=== PATIENT | female | born 1930 | race African-American/Black ===

== ENCOUNTER 2018-01-28 10:14 | Inpatient (IN) | payer MEDICARE, MEDICAID ==
[~2018-01-28] VITALS: Ht 165.1 cm; Wt 74.8 kg
[~2018-01-28 10:14] MED LIST: ACETAMINOPHEN325 M1 GT; ACIDOPHILUS LA1 EAC1 GT; ACIDOPHILUS1 EAC3 GT; ARTIFICIAL TEAR15 ML LEFT EYE; CATAPRES0.1 MG GT; CLONIDINE0.1 MG GT; COLACE100 MG/10 GT; DILANTIN GT; DILANTIN-1125 MG/5 M PO; FERROUS SULFAT325 MG GT; FOLIC ACID1 MG GT; HEPARIN SO5000 UNIT1 IJ; HEPARIN SO5000 UNIT6 SUBQ; HUMALOG100 UNIT/3 SUBQ; KEPPRA500 MG GT; LEVETIRACE500 MG/51 PO; LISPRO; MOM30 ML GT; MULTIVITAM9 MG/15 M2 GT; MULTIVITAMIN HEX5 ML GT; NORVASC10 MG GT; NORVASC10 MG ORAL; OMEPRAZOLE20 M3 GT; OYSTER SHELL C500 MG GT; PROSTAT GT; PROTONIX40 M2 GT; PROTONIX40 MG GT; TRAMADOL HCL50 MG GT; TUMS500 MG GT; TYLENOL 8 HOUR650 MG GT; TYLENOL100 MG/1 M PO; UTI-STAT L3875 MG/31 GT; VITAMIN C500 M1 GT; VITAMIN C500 MG/15 GT; ZINC PO; ZINC SULFATE220 M1 GT; ZINC50 M1 GT; ZOFRAN4 M1 GT; [UNRECOGNIZED DRUG - OTHER] GT
[2018-01-28] MEDS ORDERED: Sodium Chloride 500ML 500 ML IV ONE (10:21)
[2018-01-28] MEDS ORDERED: Pantoprazole Inj IVP ONE (10:30)
[2018-01-28 10:43] VITALS: BP 115/59
[2018-01-28 10:54] LABS: BASOPHILS % (AUTO) 0.4 % (0.0-2.0); EOSINOPHILS % (AUTO) 0.8 % (0.0-3.0); HEMATOCRIT 45.3 % (37.0-47.0); HEMOGLOBIN 13.9 G/DL (12.0-16.0); LYMPHOCYTES % (AUTO) 12.5 % (20.0-45.0); MEAN CORPUSCULAR VOLUME 77 FL (80-99); MONOCYTES % (AUTO) 6.3 % (1.0-10.0); NEUTROPHILS % (AUTO) 80.1 % (45.0-75.0); PLATELET COUNT 241 K/UL (150-450); RED BLOOD COUNT 5.91 M/UL (4.20-5.40); WHITE BLOOD COUNT 12.8 K/UL (4.8-10.8)
[2018-01-28] MEDS ORDERED: VENTOLIN HFA18 GM INH (11:03)
[2018-01-28 11:04] LABS: INR 1.1 (0.9-1.1)
[2018-01-28 11:05] LABS: ANION GAP 7 mmol/L (5-15); BLOOD UREA NITROGEN 35 mg/dL (7-18); CALCIUM 9.1 MG/DL (8.5-10.1); CARBON DIOXIDE 27 MMOL/L (21-32); CHLORIDE 97 MMOL/L (98-107); CREATININE 0.8 MG/DL (0.55-1.30); POTASSIUM 4.7 MMOL/L (3.5-5.1); SODIUM 131 MMOL/L (136-145)
[2018-01-28 11:08] LABS: ALANINE AMINOTRANSFERASE 103 U/L (12-78); ALBUMIN 2.9 G/DL (3.4-5.0); ALBUMIN/GLOBULIN RATIO 0.4 (1.0-2.7); ALKALINE PHOSPHATASE 543 U/L (46-116); ASPARTATE AMINO TRANSFERASE 49 U/L (15-37); BILIRUBIN,TOTAL 0.6 MG/DL (0.2-1.0)
[2018-01-28] MEDS ORDERED: HIBICLENS118 ML ORAL (11:09)
[2018-01-28] MEDS ORDERED: FLEET ENEMA133 ML RECTAL (11:10)
[2018-01-28] MEDS ORDERED: NAMENDA5 MG GT (11:13)
[2018-01-28] MEDS ORDERED: UTI-STAT L3875 MG/31 GT (11:15)
--- NOTE | 2018-01-28 11:31 | Diagnostic Imaging Report ---
Indication: Abdominal pain Technique: Continuous helical transaxial imaging of the abdomen and pelvis was obtained from the lung bases to the pubic symphysis. No intravenous contrast was administered. Coronal 2-D reformats were also obtained. Automatic Exposure Control was utilized. Total Dose length Product (DLP): 1042.[address] Dose Index Volume (CTDIvol): 19.75 mGy Comparison: none Findings: Mild reticular densities are demonstrated at the lung bases likely scarring. Heart is enlarged. Coronary and aortoiliac calcifications are prominent. Gastrostomy noted. The gallbladder is grossly unremarkable. There is a protuberance of the muscular fascia between the rectus muscles which are incidentally atrophic. The linea alba or fascia appears intact but is stretched out and approximates the skin. There is no free fluid or free air. There is no abscess. 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 There is an old fracture of the right femoral neck which is ununited. Bones are osteopenic. There is narrowing of intervertebral discs and accompanying endplate osteophyte formation. Hypertrophied facet joints also demonstrated.. IMPRESSION: No acute findings identified in the abdomen or pelvis. Gastrostomy Wide-based umbilical hernia. 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 Moderate atherosclerotic disease. Gastrostomy in good position. Mild basilar lung fibrosis. Spondylosis. The CT scanner at [facility] is accredited by the [employer] and the scans are performed using dose optimization techniques as appropriate to a performed exam including Automatic Exposure control.
[2018-01-28 11:37] LABS: APPEARANCE,URINE SLIGHTLY CLOUDY; BILIRUBIN, URINE NEGATIVE (NEGATIVE); GLUCOSE, URINE (UA) NEGATIVE (NEGATIVE); KETONES,URINE NEGATIVE (NEGATIVE); LEUKOCYTE ESTERASE ,URINE 3+ (NEGATIVE); NITRITE,URINE POSITIVE (NEGATIVE); PH,URINE 9 (4.5-8.0); PROTEIN,URINE 2+ (NEGATIVE); UROBILINOGEN,URINE NORMAL MG/DL (0.0-1.0)
[2018-01-28 11:39] LABS: COLOR,URINE YELLOW
--- NOTE | 2018-01-28 12:01 | Diagnostic Imaging Report ---
Indication: Dyspnea Comparison: None A single view chest radiograph was obtained. Findings: Mild interstitial edema with prominent vascularity and heart size noted. Tracheostomy noted. IMPRESSION: Development of mild CHF
[2018-01-28] MEDS ORDERED: cefTRIAXone 1 GM in NS 55 ML IVPB ONE (12:30)
[2018-01-28 12:34] VITALS: BP 132/70
--- NOTE | 2018-01-28 13:11 | Consultation ---
History of Present Illness General Date patient seen: Jan 28, 2018 Chief Complaint: Vomiting Present Illness HPI 87 year old female with hx of DM, HTN, CAD, CHF, COPD, CVA/TIA, dementia, Trached, with PEG, halfway resident presented to emergency department with vomiting and weakness. Patient apparently had several episodes of vomiting , no further information was available. 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 Pt is admitted to telemetry for further management. Allergies: Coded Allergies: No Known Allergies (Verified , 08/30/10) Medication History Scheduled Albuterol Sulfate (Ventolin Hfa), 1 PUFF INH EVERY 2 HOURS, (Reported) Amlodipine Besylate (Norvasc), 10 MG GT DAILY, (Reported) Ascorbic Acid* (Vitamin C*), 500 MG GT BID, (Reported) Chlorhexidine Gluconate* (Hibiclens*), 30 ML ORAL BID, (Reported) Cran/Vitc/Mannose/Inulin/Brom (Uti-Stat Liquid), 3,875 MG GT BID, (Reported) Dextran 70/Hypromellose (Artificial Tears Eye Drops*), 1 DROP LEFT EYE TID, ( Reported) Ferrous Sulfate* (Ferrous Sulfate*), 330 MG GT DAILY, (Reported) Folic Acid* (Folic Acid*), 1 MG GT DAILY, (Reported) Heparin Sodium,Porcine/Pf (Heparin Sod 5,000 Unit/ 0.5 Ml), 5,000 UNIT SUBQ EVERY 12 HOURS, (Reported) Insulin Lispro (Humalog), 0 SUBQ .SLIDING SCALE, (Reported) Lactobacillus Acidophilus (Acidophilus Lactobacillus), 1 EACH GT BID, (Reported) Levetiracetam (Keppra), 500 MG GT Q12H, (Reported) Memantine Hcl* (Namenda*), 5 MG GT TWICE A DAY, (Reported) Multivitamins Liq* (Multivitamin Liq*), 30 ML GT DAILY, (Reported) Omeprazole (Omeprazole), 20 MG GT DAILY, (Reported) Pantoprazole Sodium (Protonix), 40 MG GT DAILY, (Reported) Phenytoin (Dilantin Susp), 200 MG GT EVERY 12 HOURS, (Reported) Phenytoin (Dilantin-125), 150 MG PO BEDTIME, (Reported) Scheduled PRN Acetaminophen* (Acetaminophen 325MG Tablet*), 650 MG GT Q4H PRN, (Reported) Clonidine Hcl* (Catapres*), 0.1 MG GT Q6HR PRN, (Reported) Docusate Sodium (Docusate Sodium), 100 MG GT DAILY PRN for Constipation, ( Reported) Magnesium Hydroxide (Milk of Magnesia), 30 ML GT DAILY PRN, (Reported) Na Phos,M-B/Na Phos,Di-Ba* (Fleet Enema*), 133 ML RECTAL DAILY PRN for Constipation, (Reported) Ondansetron (Zofran), 4 MG GT Q6H PRN for Nausea & Vomiting, (Reported) Patient History Healthcare decision maker Resuscitation status Advanced Directive on File Past Medical/Surgical History Past Medical/Surgical History: (1) Feeding by G-tube (2) HTN (hypertension) (3) GERD (gastroesophageal reflux disease) (4) Tracheostomy dependent (5) Chronic respiratory failure Review of Systems All Other Systems: negative except mentioned in HPI Physical Exam General Appearance: WD/WN Lines, tubes and drains: peripheral HEENT: normocephalic, atraumatic Neck: non-tender, normal alignment Respiratory/Chest: chest wall non-tender, lungs clear Cardiovascular/Chest: normal peripheral pulses, normal rate Abdomen: normal bowel sounds, non tender Genitourinary/Rectal: normal genital exam, normal rectal exam Last 24 Hour Vital Signs Date Time Temp Pulse Resp B/P (MAP) Pulse Ox O2 Delivery O2 Flow Rate FiO2 01/28/18 12:34 98.0 72 20 132/70 100 Trach Collar 2.0 98.0 01/28/18 10:43 97.3 62 19 115/59 100 Trach Collar 2.0 97.3 01/28/18 10:14 97.4 68 20 168/99 100 Trach Collar 2.0 97.3 Laboratory Tests Test 01/28/18 10:35 01/28/18 11:17 White Blood Count 12.8 K/UL (4.8-10.8) H Red Blood Count 5.91 M/UL (4.20-5.40) H Hemoglobin 13.9 G/DL (12.0-16.0) Hematocrit 45.3 % (37.0-47.0) Mean Corpuscular Volume 77 FL (80-99) L Mean Corpuscular Hemoglobin 23.6 PG (27.0-31.0) L Mean Corpuscular Hemoglobin Concent 30.7 G/DL (32.0-36.0) L Red Cell Distribution Width 12.0 % (11.6-14.8) Platelet Count 241 K/UL (150-450) Mean Platelet Volume 8.1 FL (6.5-10.1) Neutrophils (%) (Auto) 80.1 % (45.0-75.0) H Lymphocytes (%) (Auto) 12.5 % (20.0-45.0) L Monocytes (%) (Auto) 6.3 % (1.0-10.0) Eosinophils (%) (Auto) 0.8 % (0.0-3.0) Basophils (%) (Auto) 0.4 % (0.0-2.0) Prothrombin Time 11.7 SEC (9.30-11.50) H Prothromb Time International Ratio 1.1 (0.9-1.1) Activated Partial Thromboplast Time 35 SEC (23-33) H Sodium Level 131 MMOL/L (136-145) L Potassium Level 4.7 MMOL/L (3.5-5.1) Chloride Level 97 MMOL/L (98-107) L Carbon Dioxide Level 27 MMOL/L (21-32) Anion Gap 7 mmol/L (5-15) Blood Urea Nitrogen 35 mg/dL (7-18) H Creatinine 0.8 MG/DL (0.55-1.30) Estimat Glomerular Filtration Rate mL/min (>60) Glucose Level 88 MG/DL (74-106) Calcium Level 9.1 MG/DL (8.5-10.1) Total Bilirubin 0.6 MG/DL (0.2-1.0) Aspartate Amino Transf (AST/SGOT) 49 U/L (15-37) H Alanine Aminotransferase (ALT/SGPT) 103 U/L (12-78) H Alkaline Phosphatase 543 U/L (46-116) H Troponin I 0.000 ng/mL (0.000-0.056) Total Protein 9.5 G/DL (6.4-8.2) H Albumin 2.9 G/DL (3.4-5.0) L Globulin 6.6 g/dL Albumin/Globulin Ratio 0.4 (1.0-2.7) L Lipase 165 U/L (73-393) Urine Color Yellow Urine Appearance Slightly cloudy Urine pH 9 (4.5-8.0) Urine Specific [place] 1.015 (1.005-1.035) Urine Protein 2+ (NEGATIVE) H Urine Glucose (UA) Negative (NEGATIVE) Urine Ketones Negative (NEGATIVE) Urine Blood 3+ (NEGATIVE) H Urine Nitrite Positive (NEGATIVE) H Urine Bilirubin Negative (NEGATIVE) Urine Urobilinogen Normal MG/DL (0.0-1.0) Urine Leukocyte Esterase 3+ (NEGATIVE) H Urine RBC 2-4 /HPF (0 - 2) H Urine WBC 10-15 /HPF (0 - 2) H Urine Squamous Epithelial Cells Few /LPF (NONE/OCC) Urine Bacteria Many /HPF (NONE) H Height (Feet): 5 Height (Inches): 5.00 Weight (Pounds): 165 Medications Current Medications Medications (Trade) Dose Ordered Sig/Junior Route PRN Reason Start Time Stop Time Status Last Admin Dose Admin Acetaminophen (Tylenol) 650 mg Q4H PRN ORAL fever 01/28/18 13:15 02/27/18 13:14 UNV Albuterol/ Ipratropium (Albuterol/ Ipratropium) 3 ml EVERY 4 HOURS PRN HHN Shortness of Breath 01/28/18 13:15 02/02/18 13:14 UNV Amlodipine Besylate (Norvasc) 10 mg DAILY GT 01/29/18 09:00 02/28/18 08:59 UNV Cefepime HCl 2 gm/ Dextrose 110 ml @ 220 mls/hr EVERY 12 HOURS IV 01/28/18 21:00 02/04/18 20:59 UNV Heparin Sodium (Porcine) (Heparin 5000 units/ml) 5,000 units EVERY 12 HOURS SUBQ 01/28/18 21:00 02/27/18 20:59 UNV Levetiracetam (Keppra) 500 mg Q12H GT 01/28/18 13:15 02/27/18 13:14 UNV Morphine Sulfate (Morphine Sulfate) 2 mg EVERY 4 HOURS PRN IVP Moderate Pain (Pain Scale 4-6) 01/28/18 13:15 02/04/18 13:14 UNV Ondansetron HCl (Zofran) 4 mg Q6H PRN IVP Nausea & Vomiting 01/28/18 13:15 02/27/18 13:14 UNV Phenazopyridine HCl (Pyridium) 100 mg DAILY PRN ORAL dysuria 01/28/18 13:15 02/27/18 13:14 UNV Phenytoin (Dilantin) 200 mg EVERY 12 HOURS GT 01/28/18 21:00 02/27/18 20:59 UNV Polyethylene Glycol (Miralax) 17 gm DAILYPRN PRN ORAL Constipation 01/28/18 13:15 02/27/18 13:14 UNV Temazepam (Restoril) 15 mg HSPRN PRN ORAL Insomnia 01/28/18 13:15 02/04/18 13:14 UNV Vancomycin HCl 1 gm/Dextrose 275 ml @ 183.3 mls/ hr Q24H IV 01/29/18 00:30 02/03/18 00:29 UNV Assessment/Plan Problem List: (1) Chronic respiratory failure ICD Codes: J96.10 - Chronic respiratory failure SNOMED: 82201978 (2) Vomiting ICD Codes: R11.10 - Vomiting, unspecified SNOMED: 803109949 (3) UGI bleed ICD Codes: K92.2 - Gastrointestinal hemorrhage, unspecified SNOMED: 94383090 (4) UTI (lower urinary tract infection) ICD Codes: N39.0 - UTI (lower urinary tract infection) SNOMED: 9025973 (5) Feeding by G-tube ICD Codes: Z93.1 - Gastrostomy status SNOMED: 072831585, 616794613 (6) HTN (hypertension) ICD Codes: I10 - Essential (primary) hypertension SNOMED: 54019007 Assessment/Plan respiratory treatment check electrolytes GI evaluation H2 blockers NPO iv fluids check electrolytes Reyna Lilly MD Jan 28, 2018 13:11
[2018-01-28] MEDS ORDERED: Albuterol/Ipratropium 3ml neb HHN PRN (13:15)
[2018-01-28] MEDS ORDERED: Morphine Sulfate 2mg/ml Inj IVP PRN (13:15)
[2018-01-28] MEDS ORDERED: Miralax 17gm pkt ORAL PRN (13:15)
--- NOTE | 2018-01-28 14:12 | Emergency Room Report ---
History of Present Illness General Chief Complaint: Vomiting Source: Medical Record Present Illness HPI Patient presents emergency department today with vomiting and weakness. Patient at baseline is bedridden and not communicative and has a G-tube. Patient also is tracheostomy that is connected to oxygen. Patient apparently had several episodes of vomiting today no further information was available. All the information was obtained from patient's records as well as from the management liaison transfer records and discussion with paramedics. Symptoms is noted to be severe.No other modifying factors. No other associated signs and symptoms. No other complaints were noted. Allergies: Coded Allergies: No Known Allergies (Verified , 08/30/10) Patient History Past Medical History: DM, HTN, CAD, CHF, COPD, CVA/TIA, dementia Past Surgical History: other - G-tube, tracheostomy Social History Narrative stays at a snf Now: No Reviewed Nursing Documentation: PMH: Agreed; PSxH: Agreed Nursing Documentation-PMH Hx Cardiac Problems: Yes - CHF Hx Hypertension: Yes Hx Asthma: No - resp failure Hx COPD: Yes - trach-vent Hx Diabetes: Yes Hx Cancer: No Hx Gastrointestinal Problems: Yes - enteral feeding dependent Hx Dialysis: No Hx Neurological Problems: Yes Hx Cerebrovascular Accident: Yes Hx Transient Ischemic Attacks: Yes Hx Dementia: Yes Hx Seizures: Yes Hx Speech Problem: Yes Hx Neurologic Surgery: No Hx Brain Shunt: No Review of Systems All Other Systems: limited - Due to poor mental status Physical Exam Vital Signs Date Time Temp Pulse Resp B/P (MAP) Pulse Ox O2 Delivery O2 Flow Rate FiO2 01/28/18 10:14 97.4 68 20 168/99 100 Trach Collar 2.0 97.3 Sp02 EP Interpretation: reviewed, normal General Appearance: other - Obese, bedridden, not communicative, Chronically Ill Head: atraumatic Eyes: bilateral eye normal inspection ENT: moist mucus membranes Neck: full range of motion, other - Tracheostomy in place Respiratory: decreased breath sounds, crackles - At the bases Cardiovascular #1: regular rate, rhythm, no edema, normal capillary refill Gastrointestinal: non tender, soft, other - G-tube in place Genitourinary: deferred Musculoskeletal: other - No obvious deformity, lower extremity contractures Neurologic: other - Unable to fully assess due to poor mental status Psychiatric: depressed affect Skin: normal color, no rash Medical Decision Making Diagnostic Impression: Primary Impression: Vomiting Additional Impressions: Leukocytosis UTI (lower urinary tract infection) Tracheostomy dependent ER Course Patient presents emergency department today with episodes of vomiting. Differential considerations include bowel obstruction, electrolyte abnormality, dehydration, UTI just to name a few.Given the severity of the patient's presentation I felt this is a highly complex patient. This patient required extensive workup. Patient's laboratory workup shows leukocytosis with evidence UTI. Given this presentation I felt the patient likely had a UTI. Patient was started on Rocephin. Patient chest x-ray also shows evidence of CHF. We'll admit this patient further treatment. Case discussed with Dr. Jean Claude Sorto for admission. Labs Test 01/28/18 10:35 01/28/18 11:17 White Blood Count 12.8 K/UL (4.8-10.8) Red Blood Count 5.91 M/UL (4.20-5.40) Hemoglobin 13.9 G/DL (12.0-16.0) Hematocrit 45.3 % (37.0-47.0) Mean Corpuscular Volume 77 FL (80-99) Mean Corpuscular Hemoglobin 23.6 PG (27.0-31.0) Mean Corpuscular Hemoglobin Concent 30.7 G/DL (32.0-36.0) Red Cell Distribution Width 12.0 % (11.6-14.8) Platelet Count 241 K/UL (150-450) Mean Platelet Volume 8.1 FL (6.5-10.1) Neutrophils (%) (Auto) 80.1 % (45.0-75.0) Lymphocytes (%) (Auto) 12.5 % (20.0-45.0) Monocytes (%) (Auto) 6.3 % (1.0-10.0) Eosinophils (%) (Auto) 0.8 % (0.0-3.0) Basophils (%) (Auto) 0.4 % (0.0-2.0) Prothrombin Time 11.7 SEC (9.30-11.50) Prothromb Time International Ratio 1.1 (0.9-1.1) Activated Partial Thromboplast Time 35 SEC (23-33) Sodium Level 131 MMOL/L (136-145) Potassium Level 4.7 MMOL/L (3.5-5.1) Chloride Level 97 MMOL/L (98-107) Carbon Dioxide Level 27 MMOL/L (21-32) Anion Gap 7 mmol/L (5-15) Blood Urea Nitrogen 35 mg/dL (7-18) Creatinine 0.8 MG/DL (0.55-1.30) Estimat Glomerular Filtration Rate mL/min (>60) Glucose Level 88 MG/DL (74-106) Calcium Level 9.1 MG/DL (8.5-10.1) Total Bilirubin 0.6 MG/DL (0.2-1.0) Aspartate Amino Transf (AST/SGOT) 49 U/L (15-37) Alanine Aminotransferase (ALT/SGPT) 103 U/L (12-78) Alkaline Phosphatase 543 U/L (46-116) Troponin I 0.000 ng/mL (0.000-0.056) Total Protein 9.5 G/DL (6.4-8.2) Albumin 2.9 G/DL (3.4-5.0) Globulin 6.6 g/dL Albumin/Globulin Ratio 0.4 (1.0-2.7) Lipase 165 U/L (73-393) Urine Color Yellow Urine Appearance Slightly cloudy Urine pH 9 (4.5-8.0) Urine Specific [place] 1.015 (1.005-1.035) Urine Protein 2+ (NEGATIVE) Urine Glucose (UA) Negative (NEGATIVE) Urine Ketones Negative (NEGATIVE) Urine Blood 3+ (NEGATIVE) Urine Nitrite Positive (NEGATIVE) Urine Bilirubin Negative (NEGATIVE) Urine Urobilinogen Normal MG/DL (0.0-1.0) Urine Leukocyte Esterase 3+ (NEGATIVE) Urine RBC 2-4 /HPF (0 - 2) Urine WBC 10-15 /HPF (0 - 2) Urine Squamous Epithelial Cells Few /LPF (NONE/OCC) Urine Bacteria Many /HPF (NONE) EKG Diagnostic Results Rate: normal Rhythm: NSR ST Segments: no acute changes Rhythm Strip Diag. Results EP Interpretation: yes Rate: 80s Rhythm: NSR, no PVC's, no ectopy Chest X-Ray Diagnostic Results Chest X-Ray Diagnostic Results : Chest X-Ray Ordered: Yes # of Views/Limited/Complete: 1 View Indication: Shortness of Breath EP Interpretation: No Impression: Other - CHF Last Vital Signs Date Time Temp Pulse Resp B/P (MAP) Pulse Ox O2 Delivery O2 Flow Rate FiO2 01/28/18 12:34 98.0 72 20 132/70 100 Trach Collar 2.0 98.0 Status: improved Disposition: ADMITTED INPATIENT Condition: Serious Referrals: Jean Claude Sorto DO (PCP) Jose Cuenca MD Jan 28, 2018 14:12
[2018-01-28] MEDS: Cefepime HCl 2 GM in D5W 110 ML IV SCH (15:13)
--- NOTE | 2018-01-28 15:47 | GI Initial Consult Note ---
History of Present Illness General Date patient seen: Jan 28, 2018 Time patient seen: 15:38 Reason for Hospitalization: Vomiting Referring physician: GELY AMADOR Reason for Consultation: VOMITING Present Illness HPI Patient presents emergency department today with vomiting and weakness. Patient at baseline is bedridden and not communicative and has a G-tube. Patient also is tracheostomy that is connected to oxygen. Patient apparently had several episodes of vomiting today no further information was available. 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 Symptoms is noted to be severe.No other modifying factors. No other associated signs and symptoms. No other complaints were noted. GI consulted for reports of vomiting. ROS limited, patient seen NAD with no active s/sx of N/V/D. Patient is tracheostomy and G Tube dependent. GT site assessed, c/d/i with no signs of erythema or drainage. Labs reviewed show abnormal LFTs and mild leukocytosis. No anemia noted. Home Meds Reported Medications Cran/Vitc/Mannose/Inulin/Brom (UTI-STAT LIQUID) 3,875 Mg/30 Ml Liquid, 3875 MG GT BID, ML 01/28/18 Memantine Hcl* (NAMENDA*) 5 Mg Tablet, 5 MG GT TWICE A DAY, TAB 01/28/18 Na Phos,M-B/Na Phos,Di-Ba* (FLEET ENEMA*) 133 Ml Enema, 133 ML RECTAL DAILY PRN for Constipation, ML 0 Refills 01/28/18 Chlorhexidine Gluconate* (HIBICLENS*) 118 Ml Liquid, 30 ML ORAL BID, ML 01/28/18 Albuterol Sulfate (VENTOLIN HFA) 18 Gm Hfa.aer.ad, 1 PUFF INH EVERY 2 HOURS, # 18 GM 0 Refills 01/28/18 Ondansetron (Zofran) 4 Mg Tablet, 4 MG GT Q6H PRN for Nausea & Vomiting, TAB 07/15/17 Omeprazole (OMEPRAZOLE) 20 Mg Tablet.dr, 20 MG GT DAILY, TAB 07/15/17 Phenytoin (DILANTIN-125) 125 Mg/5 Ml Oral.susp, 150 MG PO BEDTIME, ML 07/15/17 Dextran 70/Hypromellose (ARTIFICIAL TEARS EYE DROPS*) 15 Ml Drops, 1 DROP LEFT EYE TID, #15 ML 0 Refills 07/15/17 Ferrous Sulfate* (FERROUS SULFATE*) 325 Mg Tablet, 330 MG GT DAILY, #10 TAB 07/27/12 Ascorbic Acid* (VITAMIN C*) 500 Mg Tablet, 500 MG GT BID, TAB 07/27/12 Insulin Lispro (HUMALOG) 100 Unit/1 Ml Insuln.pen, 0 SUBQ .SLIDING SCALE Inject subcutaneously per sliding scale orders 07/27/12 Magnesium Hydroxide (Milk of Magnesia) 30 Ml Susp, 30 ML GT DAILY PRN 07/27/12 Acetaminophen* (ACETAMINOPHEN 325MG TABLET*) 325 Mg Tablet, 650 MG GT Q4H PRN 07/27/12 Clonidine Hcl* (CATAPRES*) 0.1 Mg Tablet, 0.1 MG GT Q6HR PRN 07/27/12 Pantoprazole Sodium (Protonix) 40 Mg Suspdr.pkt, 40 MG GT DAILY 07/27/12 Levetiracetam (Keppra) 500 Mg Tab, 500 MG GT Q12H, #20 TAB 07/27/12 Lactobacillus Acidophilus (ACIDOPHILUS LACTOBACILLUS) 1 Each Capsule, 1 EACH GT BID 07/27/12 Heparin Sodium,Porcine/Pf (HEPARIN SOD 5,000 UNIT/ 0.5 ML) 5,000 Unit/0.5 Ml Vial, 5000 UNIT SUBQ EVERY 12 HOURS 07/27/12 Folic Acid* (FOLIC ACID*) 1 Mg Tablet, 1 MG GT DAILY, #10 TAB Take 1 tablet by mouth every day. 07/27/12 Docusate Sodium (Docusate Sodium) 100 Mg/10 Ml Udc, 100 MG GT DAILY PRN for Constipation 07/27/12 Phenytoin (DILANTIN SUSP) 100 Mg/4 Ml Udc, 200 MG GT EVERY 12 HOURS, #21 MG 07/27/12 Amlodipine Besylate (Norvasc) 10 Mg Tab, 10 MG GT DAILY, #10 TAB 07/27/12 Multivitamins Liq* (MULTIVITAMIN LIQ*) 5 Ml Udc, 30 ML GT DAILY 03/03/12 Med list reviewed/reconciled: Yes Allergies: Coded Allergies: No Known Allergies (Verified , 08/30/10) Patient History Limited by: medical condition History Provided By: Medical Record [facility] Narrative Past Medical History: DM, HTN, CAD, CHF, COPD, CVA/TIA, dementia Past Surgical History: other - G-tube, tracheostomy Social History Narrative stays at a long term Now: No Reviewed Nursing Documentation: PMH: Agreed; PSxH: Agreed Nursing Documentation-PMH Hx Cardiac Problems: Yes - CHF Hx Hypertension: Yes Hx Asthma: No - resp failure Hx COPD: Yes - trach-vent Hx Diabetes: Yes Hx Cancer: No Hx Gastrointestinal Problems: Yes - enteral feeding dependent Hx Dialysis: No Hx Neurological Problems: Yes Hx Cerebrovascular Accident: Yes Hx Transient Ischemic Attacks: Yes Hx Dementia: Yes Hx Seizures: Yes Hx Speech Problem: Yes Hx Neurologic Surgery: No Hx Brain Shunt: No Review of Systems All Other Systems: limited Physical Exam Vital Signs Date Time Temp Pulse Resp B/P (MAP) Pulse Ox O2 Delivery O2 Flow Rate FiO2 01/28/18 10:14 97.4 68 20 168/99 100 Trach Collar 2.0 97.3 Sp02 EP Interpretation: reviewed Labs Laboratory Tests Test 01/28/18 10:35 01/28/18 11:17 White Blood Count 12.8 K/UL (4.8-10.8) H Red Blood Count 5.91 M/UL (4.20-5.40) H Hemoglobin 13.9 G/DL (12.0-16.0) Hematocrit 45.3 % (37.0-47.0) Mean Corpuscular Volume 77 FL (80-99) L Mean Corpuscular Hemoglobin 23.6 PG (27.0-31.0) L Mean Corpuscular Hemoglobin Concent 30.7 G/DL (32.0-36.0) L Red Cell Distribution Width 12.0 % (11.6-14.8) Platelet Count 241 K/UL (150-450) Mean Platelet Volume 8.1 FL (6.5-10.1) Neutrophils (%) (Auto) 80.1 % (45.0-75.0) H Lymphocytes (%) (Auto) 12.5 % (20.0-45.0) L Monocytes (%) (Auto) 6.3 % (1.0-10.0) Eosinophils (%) (Auto) 0.8 % (0.0-3.0) Basophils (%) (Auto) 0.4 % (0.0-2.0) Prothrombin Time 11.7 SEC (9.30-11.50) H Prothromb Time International Ratio 1.1 (0.9-1.1) Activated Partial Thromboplast Time 35 SEC (23-33) H Sodium Level 131 MMOL/L (136-145) L Potassium Level 4.7 MMOL/L (3.5-5.1) Chloride Level 97 MMOL/L (98-107) L Carbon Dioxide Level 27 MMOL/L (21-32) Anion Gap 7 mmol/L (5-15) Blood Urea Nitrogen 35 mg/dL (7-18) H Creatinine 0.8 MG/DL (0.55-1.30) Estimat Glomerular Filtration Rate mL/min (>60) Glucose Level 88 MG/DL (74-106) Calcium Level 9.1 MG/DL (8.5-10.1) Total Bilirubin 0.6 MG/DL (0.2-1.0) Aspartate Amino Transf (AST/SGOT) 49 U/L (15-37) H Alanine Aminotransferase (ALT/SGPT) 103 U/L (12-78) H Alkaline Phosphatase 543 U/L (46-116) H Troponin I 0.000 ng/mL (0.000-0.056) Total Protein 9.5 G/DL (6.4-8.2) H Albumin 2.9 G/DL (3.4-5.0) L Globulin 6.6 g/dL Albumin/Globulin Ratio 0.4 (1.0-2.7) L Lipase 165 U/L (73-393) Urine Color Yellow Urine Appearance Slightly cloudy Urine pH 9 (4.5-8.0) Urine Specific [place] 1.015 (1.005-1.035) Urine Protein 2+ (NEGATIVE) H Urine Glucose (UA) Negative (NEGATIVE) Urine Ketones Negative (NEGATIVE) Urine Blood 3+ (NEGATIVE) H Urine Nitrite Positive (NEGATIVE) H Urine Bilirubin Negative (NEGATIVE) Urine Urobilinogen Normal MG/DL (0.0-1.0) Urine Leukocyte Esterase 3+ (NEGATIVE) H Urine RBC 2-4 /HPF (0 - 2) H Urine WBC 10-15 /HPF (0 - 2) H Urine Squamous Epithelial Cells Few /LPF (NONE/OCC) Urine Bacteria Many /HPF (NONE) H General Appearance: no apparent distress Head: normocephalic EENT: normal ENT inspection Neck: supple Respiratory: other - tracheostomy dependent Gastrointestinal: gt - c/d/i Current Medications Current Medications Medications (Trade) Dose Ordered Sig/Junior Route PRN Reason Start Time Stop Time Status Last Admin Dose Admin Acetaminophen (Tylenol) 650 mg Q4H PRN ORAL fever 01/28/18 13:15 02/27/18 13:14 Albuterol/ Ipratropium (Albuterol/ Ipratropium) 3 ml Q4H PRN HHN Shortness of Breath 01/28/18 13:15 02/02/18 13:14 Amlodipine Besylate (Norvasc) 10 mg DAILY GT 01/29/18 09:00 02/28/18 08:59 Cefepime HCl 2 gm/ Dextrose 110 ml @ 220 mls/hr Q24H IV 01/28/18 15:00 02/04/18 14:59 01/28/18 15:13 Heparin Sodium (Porcine) (Heparin 5000 units/ml) 5,000 units EVERY 12 HOURS SUBQ 01/28/18 21:00 02/27/18 20:59 Levetiracetam (Keppra) 500 mg Q12H GT 01/28/18 21:00 02/27/18 20:59 Morphine Sulfate (Morphine Sulfate) 2 mg Q4H PRN IVP Moderate Pain (Pain Scale 4-6) 01/28/18 13:15 02/04/18 13:14 Ondansetron HCl (Zofran) 4 mg Q6H PRN IVP Nausea & Vomiting 01/28/18 13:15 02/27/18 13:14 Phenazopyridine HCl (Pyridium) 100 mg DAILYPRN PRN ORAL dysuria 01/28/18 13:15 02/27/18 13:14 Phenytoin (Dilantin) 200 mg EVERY 12 HOURS GT 01/28/18 21:00 02/27/18 20:59 Polyethylene Glycol (Miralax) 17 gm DAILYPRN PRN ORAL Constipation 01/28/18 13:15 02/27/18 13:14 Temazepam (Restoril) 15 mg HSPRN PRN ORAL Insomnia 01/28/18 13:15 02/04/18 13:14 Vancomycin HCl (Vanco rx to dose) 1 ea DAILY PRN MISC PER PHARMACY 01/28/18 13:30 02/27/18 13:29 Vancomycin HCl 1 gm/Dextrose 275 ml @ 183.3 mls/ hr Q24H IVPB 01/28/18 18:00 02/02/18 17:59 GI: Plan Problems: (1) Tracheostomy dependent (2) Vomiting (3) Leukocytosis (4) HTN (hypertension) (5) GERD (gastroesophageal reflux disease) (6) Hypoalbuminemia (7) Feeding by G-tube (8) Anemia Plan LFT elevation >> patient on Dilantin supportive care low dose reglan ATC start GTFs per RD at low rate to goal ppi abx bowel regime fu labs Discussed with Dr. Pineda. Thank you for this patient referral, we will follow. The patient was seen and examined at bedside and all new and available data was reviewed in the patients chart. I agree with the above findings, impression and plan. (Patient seen earlier today. Signature stamp does not reflect patient encounter time.). - MD Ghada [facility]Ari[facility] Jan 28, 2018 15:47
[2018-01-28 16:00] VITALS: BP 132/76
[2018-01-28] MEDS ORDERED: Vancomycin 1 GM in D5W 275 ML IVPB SCH (18:00)
--- NOTE | 2018-01-28 19:12 | Cardiology Progress Note ---
Assessment/Plan Assessment/Plan The patient is seen and examined, full consult note will be dictated shortly. Objective Last 24 Hour Vital Signs Date Time Temp Pulse Resp B/P (MAP) Pulse Ox O2 Delivery O2 Flow Rate FiO2 01/28/18 16:00 64 01/28/18 16:00 30 01/28/18 14:37 Trach Collar 3.0 01/28/18 13:35 98.0 72 20 132/70 100 Trach Collar 2.0 98.0 01/28/18 12:34 98.0 72 20 132/70 100 Trach Collar 2.0 98.0 01/28/18 10:43 97.3 62 19 115/59 100 Trach Collar 2.0 97.3 01/28/18 10:14 97.4 68 20 168/99 100 Trach Collar 2.0 97.3 Laboratory Tests Test 01/28/18 10:35 01/28/18 11:17 White Blood Count 12.8 K/UL (4.8-10.8) H Red Blood Count 5.91 M/UL (4.20-5.40) H Hemoglobin 13.9 G/DL (12.0-16.0) Hematocrit 45.3 % (37.0-47.0) Mean Corpuscular Volume 77 FL (80-99) L Mean Corpuscular Hemoglobin 23.6 PG (27.0-31.0) L Mean Corpuscular Hemoglobin Concent 30.7 G/DL (32.0-36.0) L Red Cell Distribution Width 12.0 % (11.6-14.8) Platelet Count 241 K/UL (150-450) Mean Platelet Volume 8.1 FL (6.5-10.1) Neutrophils (%) (Auto) 80.1 % (45.0-75.0) H Lymphocytes (%) (Auto) 12.5 % (20.0-45.0) L Monocytes (%) (Auto) 6.3 % (1.0-10.0) Eosinophils (%) (Auto) 0.8 % (0.0-3.0) Basophils (%) (Auto) 0.4 % (0.0-2.0) Prothrombin Time 11.7 SEC (9.30-11.50) H Prothromb Time International Ratio 1.1 (0.9-1.1) Activated Partial Thromboplast Time 35 SEC (23-33) H Sodium Level 131 MMOL/L (136-145) L Potassium Level 4.7 MMOL/L (3.5-5.1) Chloride Level 97 MMOL/L (98-107) L Carbon Dioxide Level 27 MMOL/L (21-32) Anion Gap 7 mmol/L (5-15) Blood Urea Nitrogen 35 mg/dL (7-18) H Creatinine 0.8 MG/DL (0.55-1.30) Estimat Glomerular Filtration Rate mL/min (>60) Glucose Level 88 MG/DL (74-106) Calcium Level 9.1 MG/DL (8.5-10.1) Total Bilirubin 0.6 MG/DL (0.2-1.0) Aspartate Amino Transf (AST/SGOT) 49 U/L (15-37) H Alanine Aminotransferase (ALT/SGPT) 103 U/L (12-78) H Alkaline Phosphatase 543 U/L (46-116) H Troponin I 0.000 ng/mL (0.000-0.056) Total Protein 9.5 G/DL (6.4-8.2) H Albumin 2.9 G/DL (3.4-5.0) L Globulin 6.6 g/dL Albumin/Globulin Ratio 0.4 (1.0-2.7) L Lipase 165 U/L (73-393) Urine Color Yellow Urine Appearance Slightly cloudy Urine pH 9 (4.5-8.0) Urine Specific [place] 1.015 (1.005-1.035) Urine Protein 2+ (NEGATIVE) H Urine Glucose (UA) Negative (NEGATIVE) Urine Ketones Negative (NEGATIVE) Urine Blood 3+ (NEGATIVE) H Urine Nitrite Positive (NEGATIVE) H Urine Bilirubin Negative (NEGATIVE) Urine Urobilinogen Normal MG/DL (0.0-1.0) Urine Leukocyte Esterase 3+ (NEGATIVE) H Urine RBC 2-4 /HPF (0 - 2) H Urine WBC 10-15 /HPF (0 - 2) H Urine Squamous Epithelial Cells Few /LPF (NONE/OCC) Urine Bacteria Many /HPF (NONE) H Carter Reed MD Jan 28, 2018 19:12
[2018-01-28 20:00] VITALS: BP 118/75
[2018-01-28] MEDS: NovoLOG Insulin Flexpen SUBQ SCH (21:00)
[2018-01-28] MEDS: Phenytoin Susp 100mg/4ml GT SCH (22:09)
[2018-01-28] MEDS: levETIRAcetam 500mg/5ml Liquid GT SCH (22:09)
[2018-01-28] MEDS: Heparin 5000 units/ml inj SUBQ SCH (22:10)
[2018-01-29] VITALS: BP 119/74
--- NOTE | 2018-01-29 02:30 | Consultation ---
DATE OF CONSULTATION: 01/28/2018 CARDIOLOGY CONSULTATION CONSULTING PHYSICIAN: Carter Reed M.D. REQUESTING PHYSICIAN: Jean Claude Sorto D.O. REASON FOR CONSULTATION: Management of hypertension. HISTORY OF PRESENT ILLNESS: This is a very unfortunate 87-year-old female, who is bedridden and noncommunicative, is being transferred from a nursing facility for vomiting and weakness. Apparently, the patient had several episodes of vomiting today. There was no other associated complaints of fever, chills, or abdominal pain. The patient has history of ventilatory-drive respiratory failure, status post tracheostomy tube placement, as well as dysphagia, and status post PEG placement. Other chronic medical problems including diabetes mellitus, hypertension, coronary artery disease, congestive heart failure, chronic obstructive pulmonary disease, CVA/TIA, and dementia. At the time of arrival to the hospital, initial blood pressure was 168/99 mmHg and pulse was 68 beats per minute. Initial 12-lead electrocardiogram shows sinus rhythm, heart rate of 80 with no witness of ectopy or ST and T-wave abnormalities. Chest x-ray was significant for mild interstitial edema, cardiomegaly, and presence of tracheostomy tube. PAST MEDICAL HISTORY: Including diabetes mellitus, hypertension, CAD, CHF, COPD, CVA/TIA, and dementia. PAST SURGICAL HISTORY: Status post tracheostomy tube placement and status post PEG placement. MEDICATIONS: List of medications in the nursing facility includes acetaminophen 650 mg G-tube q.4 h. p.r.n. pain and temperature, albuterol inhaler 1 puff q. hours, Norvasc 10 mg G-tube daily, vitamin C 500 mg G-tube twice daily, chlorhexidine gluconate 30 mL G-tube twice daily, clonidine 1.1 mg G-tube q.6 hours p.r.n. systolic blood pressure over 160, artificial tears, UTI-Stat liquid 75 mg G-tube twice daily, Colace 100 mg G-tube daily p.r.n. constipation, ferrous sulfate 330 mg G-tube daily, folic acid 1 mg G-tube daily, heparin sulfate 5000 units subcutaneous q.12 hours, insulin lispro sliding scale, Lactobacillus acidophilus 1 capsule G-tube twice daily, Keppra 500 mg G-tube q.12 hours, milk of magnesia 30 mL G-tube daily, multivitamin 30 mL G-tube daily, Fleet Enema 133 mL rectal daily p.r.n. constipation, omeprazole 20 mg G-tube daily, Zofran 4 mg G-tube q.6 h. p.r.n. nausea and vomiting, Protonix 40 mg G-tube daily, and Dilantin 200 mg G-tube q.12 hours and 150 mg p.o. at bedtime. ALLERGIES: No known drug allergies. SOCIAL HISTORY: Resident of a nursing facility. Currently, denies any tobacco, alcohol, or illicit drug use. REVIEW OF SYSTEMS: A 12-system review cannot be assessed due to underlying dementia and nonverbal status. PHYSICAL EXAMINATION: VITAL SIGNS: Blood pressure was 168/99, pulse of 68, respirations of 20, temperature 98.4 degrees Fahrenheit, and O2 saturation 100% on room air. GENERAL: The patient is a very unfortunate 87-year-old lady, who is bedridden, and noncommunicative. HEENT: Atraumatic and normocephalic. Anicteric. Presence of a trach collar. Pupils are equal, round, and reactive to light and accommodation. NECK: JVP cannot be assessed. No carotid bruit. CARDIOVASCULAR: Normal S1, S2. Regular rate and rhythm. No murmurs, gallops, or rubs. PMI is at fourth intercostal space in the midclavicular line. LUNGS: Diminished breath sounds in both bases. ABDOMEN: Soft, nontender, and nondistended. No hepatosplenomegaly. Presence of a G-tube. Positive bowel sounds. EXTREMITIES: No evidence of edema, clubbing, or cyanosis. LABORATORY FINDINGS: WBC 12.8, hemoglobin 13.9, hematocrit of 45.3, and platelet count is 241,000. Chemistry shows sodium 131, potassium is 4.7, chloride 97, bicarbonate 27, BUN 35, creatinine 0.8, and glucose 88. Hemoglobin A1c 5.5. Calcium is 9.1. Troponin I is 0. INR is 1.1. ASSESSMENT AND PLAN: The patient is a very unfortunate 87-year-old female seen in Cardiology consultation at the request of Dr. Sorto. 1. Accelerated hypertension. I would like to continue this patient on amlodipine 10 mg daily and continue to monitor the patient's blood pressure. 2. Failure to thrive and associated hypovolemia as it is evident on the chemistry with sodium of 131 and BUN and creatinine suggestive of prerenal azotemia. Hydration and electrolyte correction is warranted. 3. Prior history of 2D echocardiography showing normal LV systolic function. I would like to thank, Dr. Sorto, for allowing me to participate in the care of this patient. Carter Reed M.D. DR: LJ JOB#: [id number] CC:
[2018-01-29 04:00] VITALS: BP 111/62
[2018-01-29] MEDS: NovoLOG Insulin Flexpen SUBQ SCH ×3 (06:30→17:02)
[2018-01-29 06:43] LABS: BASOPHILS % (AUTO) 1.5 % (0.0-2.0); EOSINOPHILS % (AUTO) 1.9 % (0.0-3.0); HEMATOCRIT 38.4 % (37.0-47.0); HEMOGLOBIN 12.1 G/DL (12.0-16.0); MEAN CORPUSCULAR VOLUME 77 FL (80-99); MONOCYTES % (AUTO) 9.4 % (1.0-10.0); NEUTROPHILS % (AUTO) 69.2 % (45.0-75.0); PLATELET COUNT 197 K/UL (150-450); RED BLOOD COUNT 4.98 M/UL (4.20-5.40); RED CELL DISTRIBUTION WIDTH 12.2 % (11.6-14.8); WHITE BLOOD COUNT 6.2 K/UL (4.8-10.8)
[2018-01-29 07:01] LABS: ALANINE AMINOTRANSFERASE 79 U/L (12-78); ALBUMIN 2.6 G/DL (3.4-5.0); ALBUMIN/GLOBULIN RATIO 0.4 (1.0-2.7); ALKALINE PHOSPHATASE 445 U/L (46-116); ANION GAP 5 mmol/L (5-15); ASPARTATE AMINO TRANSFERASE 38 U/L (15-37); BILIRUBIN,TOTAL 0.8 MG/DL (0.2-1.0); BLOOD UREA NITROGEN 31 mg/dL (7-18); CALCIUM 8.7 MG/DL (8.5-10.1); CARBON DIOXIDE 27 MMOL/L (21-32); CHLORIDE 100 MMOL/L (98-107); CREATININE 0.7 MG/DL (0.55-1.30); POTASSIUM 4.4 MMOL/L (3.5-5.1); SODIUM 132 MMOL/L (136-145)
[2018-01-29 08:00] VITALS: BP 135/75
--- NOTE | 2018-01-29 08:48 | Consultation ---
History of Present Illness General Date patient seen: Jan 29, 2018 Chief Complaint: Vomiting Referring physician: GELY AMADRO Reason for Consultation: VOMITING Present Illness HPI Ms Gallegos is a 87 yo female with PMHx of DM, HTN, CHF, COPD, CVA (S/P Peg and Trach) and dementia who presented to the ED on 01/28/18 from a [facility] with Hx of vomiting and weakness. She is non-verbal and bed ridden per notes. She was apparently observed to have vomited several time at the [facility]. She is unable to give any history. In the ED she had leukocytosis but was afebrile. She was not observed to be vomiting. She does have a G-Tube. CXR and CT abd/pel showed no infectious etiology. Her UA was mildly positive and she was started on abx. ID was consulted for leukocytosis and vomiting. PMHX/PSHx DM HTN CAD CHF COPD CVA/TIA Dementia Trach/T-tube dependent SocHx Unable to obtain 2/2 dementia and non-verbal FamHx Unable to obtain 2/2 dementia and non-verbal Allergies: Coded Allergies: No Known Allergies (Verified , 08/30/10) Medication History Scheduled Albuterol Sulfate (Ventolin Hfa), 1 PUFF INH EVERY 2 HOURS, (Reported) Amlodipine Besylate (Norvasc), 10 MG GT DAILY, (Reported) Ascorbic Acid* (Vitamin C*), 500 MG GT BID, (Reported) Chlorhexidine Gluconate* (Hibiclens*), 30 ML ORAL BID, (Reported) Cran/Vitc/Mannose/Inulin/Brom (Uti-Stat Liquid), 3,875 MG GT BID, (Reported) Dextran 70/Hypromellose (Artificial Tears Eye Drops*), 1 DROP LEFT EYE TID, ( Reported) Ferrous Sulfate* (Ferrous Sulfate*), 330 MG GT DAILY, (Reported) Folic Acid* (Folic Acid*), 1 MG GT DAILY, (Reported) Heparin Sodium,Porcine/Pf (Heparin Sod 5,000 Unit/ 0.5 Ml), 5,000 UNIT SUBQ EVERY 12 HOURS, (Reported) Insulin Lispro (Humalog), 0 SUBQ .SLIDING SCALE, (Reported) Lactobacillus Acidophilus (Acidophilus Lactobacillus), 1 EACH GT BID, (Reported) Levetiracetam (Keppra), 500 MG GT Q12H, (Reported) Memantine Hcl* (Namenda*), 5 MG GT TWICE A DAY, (Reported) Multivitamins Liq* (Multivitamin Liq*), 30 ML GT DAILY, (Reported) Omeprazole (Omeprazole), 20 MG GT DAILY, (Reported) Pantoprazole Sodium (Protonix), 40 MG GT DAILY, (Reported) Phenytoin (Dilantin Susp), 200 MG GT EVERY 12 HOURS, (Reported) Phenytoin (Dilantin-125), 150 MG PO BEDTIME, (Reported) Scheduled PRN Acetaminophen* (Acetaminophen 325MG Tablet*), 650 MG GT Q4H PRN, (Reported) Clonidine Hcl* (Catapres*), 0.1 MG GT Q6HR PRN, (Reported) Docusate Sodium (Docusate Sodium), 100 MG GT DAILY PRN for Constipation, ( Reported) Magnesium Hydroxide (Milk of Magnesia), 30 ML GT DAILY PRN, (Reported) Na Phos,M-B/Na Phos,Di-Ba* (Fleet Enema*), 133 ML RECTAL DAILY PRN for Constipation, (Reported) Ondansetron (Zofran), 4 MG GT Q6H PRN for Nausea & Vomiting, (Reported) Patient History Healthcare decision maker Susan Duncan (JUSTO) Resuscitation status Full Code Advanced Directive on File Review of Systems ROS Narrative Unable to obtain 2/2 dementia and non-verbal Physical Exam Last 24 Hour Vital Signs Date Time Temp Pulse Resp B/P (MAP) Pulse Ox O2 Delivery O2 Flow Rate FiO2 01/29/18 07:39 T-piece 8.0 35 01/29/18 07:38 98 T-piece 8.0 35 01/29/18 07:37 59 18 T-piece 8.0 35 01/29/18 04:00 66 01/29/18 04:00 97.0 64 20 111/62 (78) 98 97.0 01/29/18 04:00 3.0 28 01/29/18 01:17 T-piece 8.0 30 01/29/18 01:17 99 T-piece 8.0 30 01/29/18 00:00 61 01/29/18 00:00 97.0 60 18 119/74 (89) 96 97.0 01/28/18 21:00 T-piece 3.0 01/28/18 20:00 96.8 63 18 118/75 (89) 100 96.8 01/28/18 20:00 66 01/28/18 20:00 3.0 28 01/28/18 19:36 98 T-piece 8.0 30 01/28/18 19:36 T-piece 8.0 30 01/28/18 19:36 65 20 T-piece 8.0 30 01/28/18 16:00 64 01/28/18 16:00 97.5 86 18 132/76 (94) 100 97.5 01/28/18 16:00 30 01/28/18 14:37 Trach Collar 3.0 01/28/18 13:35 98.0 72 20 132/70 100 Trach Collar 2.0 98.0 01/28/18 12:34 98.0 72 20 132/70 100 Trach Collar 2.0 98.0 01/28/18 10:43 97.3 62 19 115/59 100 Trach Collar 2.0 97.3 01/28/18 10:14 97.4 68 20 168/99 100 Trach Collar 2.0 97.3 Intake and Output 01/28/18 01/29/18 19:00 07:00 Intake Total 50 ml 230 ml Output Total 0 ml Balance 50 ml 230 ml Intake Free Water 30 ml 90 ml Tube Feeding 20 ml 140 ml Output Urine Total 0 ml # Voids 2 Laboratory Tests Test 01/28/18 10:35 01/28/18 11:17 01/29/18 05:40 White Blood Count 12.8 K/UL (4.8-10.8) H 6.2 K/UL (4.8-10.8) # Red Blood Count 5.91 M/UL (4.20-5.40) H 4.98 M/UL (4.20-5.40) Hemoglobin 13.9 G/DL (12.0-16.0) 12.1 G/DL (12.0-16.0) Hematocrit 45.3 % (37.0-47.0) 38.4 % (37.0-47.0) Mean Corpuscular Volume 77 FL (80-99) L 77 FL (80-99) L Mean Corpuscular Hemoglobin 23.6 PG (27.0-31.0) L 24.4 PG (27.0-31.0) L Mean Corpuscular Hemoglobin Concent 30.7 G/DL (32.0-36.0) L 31.6 G/DL (32.0-36.0) L Red Cell Distribution Width 12.0 % (11.6-14.8) 12.2 % (11.6-14.8) Platelet Count 241 K/UL (150-450) 197 K/UL (150-450) Mean Platelet Volume 8.1 FL (6.5-10.1) 8.7 FL (6.5-10.1) Neutrophils (%) (Auto) 80.1 % (45.0-75.0) H 69.2 % (45.0-75.0) Lymphocytes (%) (Auto) 12.5 % (20.0-45.0) L 18.0 % (20.0-45.0) L Monocytes (%) (Auto) 6.3 % (1.0-10.0) 9.4 % (1.0-10.0) Eosinophils (%) (Auto) 0.8 % (0.0-3.0) 1.9 % (0.0-3.0) Basophils (%) (Auto) 0.4 % (0.0-2.0) 1.5 % (0.0-2.0) Prothrombin Time 11.7 SEC (9.30-11.50) H Prothromb Time International Ratio 1.1 (0.9-1.1) Activated Partial Thromboplast Time 35 SEC (23-33) H Sodium Level 131 MMOL/L (136-145) L 132 MMOL/L (136-145) L Potassium Level 4.7 MMOL/L (3.5-5.1) 4.4 MMOL/L (3.5-5.1) Chloride Level 97 MMOL/L (98-107) L 100 MMOL/L (98-107) Carbon Dioxide Level 27 MMOL/L (21-32) 27 MMOL/L (21-32) Anion Gap 7 mmol/L (5-15) 5 mmol/L (5-15) Blood Urea Nitrogen 35 mg/dL (7-18) H 31 mg/dL (7-18) H Creatinine 0.8 MG/DL (0.55-1.30) 0.7 MG/DL (0.55-1.30) Estimat Glomerular Filtration Rate mL/min (>60) mL/min (>60) Glucose Level 88 MG/DL (74-106) 91 MG/DL (74-106) Hemoglobin A1c 5.5 % (4.3-6.0) Calcium Level 9.1 MG/DL (8.5-10.1) 8.7 MG/DL (8.5-10.1) Total Bilirubin 0.6 MG/DL (0.2-1.0) 0.8 MG/DL (0.2-1.0) Aspartate Amino Transf (AST/SGOT) 49 U/L (15-37) H 38 U/L (15-37) H Alanine Aminotransferase (ALT/SGPT) 103 U/L (12-78) H 79 U/L (12-78) H Alkaline Phosphatase 543 U/L (46-116) H 445 U/L (46-116) H Troponin I 0.000 ng/mL (0.000-0.056) Total Protein 9.5 G/DL (6.4-8.2) H 8.5 G/DL (6.4-8.2) H Albumin 2.9 G/DL (3.4-5.0) L 2.6 G/DL (3.4-5.0) L Globulin 6.6 g/dL 5.9 g/dL Albumin/Globulin Ratio 0.4 (1.0-2.7) L 0.4 (1.0-2.7) L Lipase 165 U/L (73-393) Urine Color Yellow Urine Appearance Slightly cloudy Urine pH 9 (4.5-8.0) Urine Specific [place] 1.015 (1.005-1.035) Urine Protein 2+ (NEGATIVE) H Urine Glucose (UA) Negative (NEGATIVE) Urine Ketones Negative (NEGATIVE) Urine Blood 3+ (NEGATIVE) H Urine Nitrite Positive (NEGATIVE) H Urine Bilirubin Negative (NEGATIVE) Urine Urobilinogen Normal MG/DL (0.0-1.0) Urine Leukocyte Esterase 3+ (NEGATIVE) H Urine RBC 2-4 /HPF (0 - 2) H Urine WBC 10-15 /HPF (0 - 2) H Urine Squamous Epithelial Cells Few /LPF (NONE/OCC) Urine Bacteria Many /HPF (NONE) H Height (Feet): 5 Height (Inches): 5.00 Weight (Pounds): 165 Medications Current Medications Medications (Trade) Dose Ordered Sig/Junior Route PRN Reason Start Time Stop Time Status Last Admin Dose Admin Acetaminophen (Tylenol) 650 mg Q4H PRN ORAL fever 01/28/18 13:15 02/27/18 13:14 Albuterol/ Ipratropium (Albuterol/ Ipratropium) 3 ml Q4H PRN HHN Shortness of Breath 01/28/18 13:15 02/02/18 13:14 Amlodipine Besylate (Norvasc) 10 mg DAILY GT 01/29/18 09:00 02/28/18 08:59 Cefepime HCl 2 gm/ Dextrose 110 ml @ 220 mls/hr Q24H IV 01/28/18 15:00 02/04/18 14:59 01/28/18 15:13 Dextrose (Dextrose 50%) 25 ml Q30M PRN IV Hypoglycemia 01/28/18 20:45 02/27/18 20:44 Dextrose (Dextrose 50%) 50 ml Q30M PRN IV Hypoglycemia 01/28/18 20:45 02/27/18 20:44 Heparin Sodium (Porcine) (Heparin 5000 units/ml) 5,000 units EVERY 12 HOURS SUBQ 01/28/18 21:00 02/27/18 20:59 01/28/18 22:10 Insulin Aspart (NovoLOG) BEFORE MEALS AND HS SUBQ 01/28/18 21:00 02/27/18 20:59 Levetiracetam (Keppra) 500 mg Q12H GT 01/28/18 21:00 02/27/18 20:59 01/28/18 22:09 Morphine Sulfate (Morphine Sulfate) 2 mg Q4H PRN IVP Moderate Pain (Pain Scale 4-6) 01/28/18 13:15 02/04/18 13:14 Ondansetron HCl (Zofran) 4 mg Q6H PRN IVP Nausea & Vomiting 01/28/18 13:15 02/27/18 13:14 Phenazopyridine HCl (Pyridium) 100 mg DAILYPRN PRN ORAL dysuria 01/28/18 13:15 02/27/18 13:14 Phenytoin (Dilantin) 200 mg EVERY 12 HOURS GT 01/28/18 21:00 02/27/18 20:59 01/28/18 22:09 Polyethylene Glycol (Miralax) 17 gm DAILYPRN PRN ORAL Constipation 01/28/18 13:15 02/27/18 13:14 Temazepam (Restoril) 15 mg HSPRN PRN ORAL Insomnia 01/28/18 13:15 02/04/18 13:14 Vancomycin HCl (Vanco rx to dose) 1 ea DAILY PRN MISC PER PHARMACY 01/28/18 13:30 02/27/18 13:29 Vancomycin HCl 1 gm/Dextrose 275 ml @ 183.3 mls/ hr Q24H IVPB 01/28/18 18:00 02/02/18 17:59 01/28/18 18:18 Objective Narrative Gen: NAD, Laying in bed, On T-piece O2 HEENT: NCAT, MMM, EOMI, PERRL, No Oral lesion, no scleral icterus, Trached NECK: full range of motion, supple, no meningismus, No LAD, No JVD LUNGS: CTAB, No W/C, No Accessory muscle use CARDS: RRR, S1, S2, No M/R/G ABD: Soft, NT, ND, No R/G, + BS, No HSM, No Masses, G-tube (no E/P) : Deferred Ext: C/C/E, Pulses 2+ B/L (DP, Rad) NEURO: A/O x 0, Strength and Sensation Grossly intact PSYCH: mood/affect normal SKIN: warm/dry, No rashes, Sacral ulcer ( No E/P) Assessment/Plan Assessment/Plan 87 yo female with PMHx of DM, HTN, CHF, COPD, CVA (S/P Peg and Trach) and dementia who presented to the ED on 01/28/18 from a [facility] with Hx of vomiting and weakness. Leukocytosis Resolved UTI vs Gastroenteritis UTI UA positive Unable to assess symptoms UCx Pending DM HTN CAD CHF COPD CVA/TIA Dementia Trach/T-tube dependent PLAN: - Continue Cefepime #1/7 - Pending UCx - D/C Vancomcyin #1 - f/u cultures - Monitor CBC and Temps - Supportive care Thank you for this consult. We will continue to follow Ms Gallegos during this hospitalization. Aroldo Olguin MD Jan 29, 2018 08:48
[2018-01-29] MEDS: Heparin 5000 units/ml inj SUBQ SCH ×2 (09:00→22:50)
[2018-01-29] MEDS: Phenytoin Susp 100mg/4ml GT SCH ×2 (09:10→22:48)
[2018-01-29] MEDS: levETIRAcetam 500mg/5ml Liquid GT SCH ×2 (09:49→22:49)
--- NOTE | 2018-01-29 11:58 | Pulmonology Progress Note ---
Assessment/Plan Problems: (1) Chronic respiratory failure (2) Vomiting (3) UGI bleed (4) UTI (lower urinary tract infection) (5) Feeding by G-tube (6) HTN (hypertension) Assessment/Plan looks comfortable respiratory treatment trach site care check h/h prbc prn GI evaluation H2 blockers monitor BP check electrolytes Subjective ROS Limited/Unobtainable: No Constitutional: Reports: no symptoms HEENT: Repors: no symptoms Respiratory: Reports: no symptoms Allergies: Coded Allergies: No Known Allergies (Verified , 08/30/10) Objective Last 24 Hour Vital Signs Date Time Temp Pulse Resp B/P (MAP) Pulse Ox O2 Delivery O2 Flow Rate FiO2 01/29/18 09:10 59 135/75 01/29/18 09:00 T-piece 3.0 01/29/18 08:00 62 01/29/18 08:00 96.8 59 20 135/75 (95) 99 96.8 01/29/18 08:00 3.0 28 01/29/18 07:39 T-piece 8.0 35 01/29/18 07:38 98 T-piece 8.0 35 01/29/18 07:37 59 18 T-piece 8.0 35 01/29/18 04:00 66 01/29/18 04:00 97.0 64 20 111/62 (78) 98 97.0 01/29/18 04:00 3.0 28 01/29/18 01:17 T-piece 8.0 30 01/29/18 01:17 99 T-piece 8.0 30 01/29/18 00:00 61 01/29/18 00:00 97.0 60 18 119/74 (89) 96 97.0 01/28/18 21:00 T-piece 3.0 01/28/18 20:00 96.8 63 18 118/75 (89) 100 96.8 01/28/18 20:00 66 01/28/18 20:00 3.0 28 01/28/18 19:36 98 T-piece 8.0 30 01/28/18 19:36 T-piece 8.0 30 01/28/18 19:36 65 20 T-piece 8.0 30 01/28/18 16:00 64 01/28/18 16:00 97.5 86 18 132/76 (94) 100 97.5 01/28/18 16:00 30 01/28/18 14:37 Trach Collar 3.0 01/28/18 13:35 98.0 72 20 132/70 100 Trach Collar 2.0 98.0 01/28/18 12:34 98.0 72 20 132/70 100 Trach Collar 2.0 98.0 Intake and Output 01/28/18 01/29/18 19:00 07:00 Intake Total 50 ml 230 ml Output Total 0 ml Balance 50 ml 230 ml Intake Free Water 30 ml 90 ml Tube Feeding 20 ml 140 ml Output Urine Total 0 ml # Voids 2 General Appearance: WD/WN HEENT: normocephalic, status post trach Respiratory/Chest: chest wall non-tender Cardiovascular: normal peripheral pulses, normal rate, no JVD Abdomen: normal bowel sounds, soft, non tender Extremities: no cyanosis, no clubbing Neurologic/Psychiatric: inspector golf ball II-XII grossly normal Microbiology Date/Time Source Procedure Growth Status 01/28/18 11:17 Urine,Clean Catch Urine Culture - Preliminary Gram Negative Bacillus 1 Resulted 01/28/18 11:17 Rectum VRE Culture Pending Resulted 01/28/18 11:17 Rectum - Preliminary Resulted Laboratory Tests 01/29/18 05:40: White Blood Count 6.2#, Red Blood Count 4.98, Hemoglobin 12.1, Hematocrit 38.4, Mean Corpuscular Volume 77L, Mean Corpuscular Hemoglobin 24.4L, Mean Corpuscular Hemoglobin Concent 31.6L, Red Cell Distribution Width 12.2, Platelet Count 197, Mean Platelet Volume 8.7, Neutrophils (%) (Auto) 69.2, Lymphocytes (%) (Auto) 18.0L, Monocytes (%) (Auto) 9.4, Eosinophils (%) (Auto) 1.9, Basophils (%) (Auto) 1.5, Sodium Level 132L, Potassium Level 4.4, Chloride Level 100, Carbon Dioxide Level 27, Anion Gap 5, Blood Urea Nitrogen 31H, Creatinine 0.7, Estimat Glomerular Filtration Rate , Glucose Level 91, Calcium Level 8.7, Total Bilirubin 0.8, Aspartate Amino Transf (AST/SGOT) 38H, Alanine Aminotransferase (ALT/SGPT) 79H, Alkaline Phosphatase 445H, Total Protein 8.5H, Albumin 2.6L, Globulin 5.9, Albumin/Globulin Ratio 0.4L Current Medications Medications (Trade) Dose Ordered Sig/Junior Route PRN Reason Start Time Stop Time Status Last Admin Dose Admin Acetaminophen (Tylenol) 650 mg Q4H PRN ORAL fever 01/28/18 13:15 02/27/18 13:14 Albuterol/ Ipratropium (Albuterol/ Ipratropium) 3 ml Q4H PRN HHN Shortness of Breath 01/28/18 13:15 02/02/18 13:14 Amlodipine Besylate (Norvasc) 10 mg DAILY GT 01/29/18 09:00 02/28/18 08:59 01/29/18 09:10 Cefepime HCl 2 gm/ Dextrose 110 ml @ 220 mls/hr Q24H IV 01/28/18 15:00 02/04/18 14:59 01/28/18 15:13 Dextrose (Dextrose 50%) 25 ml Q30M PRN IV Hypoglycemia 01/28/18 20:45 02/27/18 20:44 Dextrose (Dextrose 50%) 50 ml Q30M PRN IV Hypoglycemia 01/28/18 20:45 02/27/18 20:44 Heparin Sodium (Porcine) (Heparin 5000 units/ml) 5,000 units EVERY 12 HOURS SUBQ 01/28/18 21:00 02/27/18 20:59 01/28/18 22:10 Insulin Aspart (NovoLOG) BEFORE MEALS AND HS SUBQ 01/28/18 21:00 02/27/18 20:59 Levetiracetam (Keppra) 500 mg Q12H GT 01/28/18 21:00 02/27/18 20:59 01/29/18 09:49 Morphine Sulfate (Morphine Sulfate) 2 mg Q4H PRN IVP Moderate Pain (Pain Scale 4-6) 01/28/18 13:15 02/04/18 13:14 Ondansetron HCl (Zofran) 4 mg Q6H PRN IVP Nausea & Vomiting 01/28/18 13:15 02/27/18 13:14 Phenazopyridine HCl (Pyridium) 100 mg DAILYPRN PRN ORAL dysuria 01/28/18 13:15 02/27/18 13:14 Phenytoin (Dilantin) 200 mg EVERY 12 HOURS GT 01/28/18 21:00 10/27/18 20:59 01/29/18 09:10 Polyethylene Glycol (Miralax) 17 gm DAILYPRN PRN ORAL Constipation 01/28/18 13:15 02/27/18 13:14 Temazepam (Restoril) 15 mg HSPRN PRN ORAL Insomnia 01/28/18 13:15 02/04/18 13:14 Reyna Lilly MD Jan 29, 2018 11:57
[2018-01-29 12:00] VITALS: BP 128/75
--- NOTE | 2018-01-29 12:36 | GI Progress Note ---
Assessment/Plan Problems: (1) Feeding by G-tube ICD Codes: Z93.1 - Gastrostomy status SNOMED: 918474346, 135331518 (2) Vomiting ICD Codes: R11.10 - Vomiting, unspecified SNOMED: 641120027 (3) GERD (gastroesophageal reflux disease) ICD Codes: K21.9 - Gastro-esophageal reflux disease without esophagitis SNOMED: 521936569 (4) Hypoalbuminemia ICD Codes: E88.09 - Other disorders of plasma-protein metabolism, not elsewhere classified SNOMED: 727718415 (5) Anemia ICD Codes: D64.9 - Anemia, unspecified SNOMED: 380323513 (6) Tracheostomy dependent ICD Codes: Z93.0 - Tracheostomy dependent SNOMED: 667512532 Status: stable Status Narrative Discussed with Dr. Pineda. Assessment/Plan LFT elevation >> patient on Dilantin no recent vomiting supportive care low dose reglan ATC GTFs per RD at low rate to goal ppi abx bowel regime fu labs The patient was seen and examined at bedside and all new and available data was reviewed in the patients chart. I agree with the above findings, impression and plan. (Patient seen earlier today. Signature stamp does not reflect patient encounter time.). - Olivier Pineda MD Subjective Subjective limited Objective Last 24 Hour Vital Signs Date Time Temp Pulse Resp B/P (MAP) Pulse Ox O2 Delivery O2 Flow Rate FiO2 01/29/18 12:00 96.9 66 18 128/75 (92) 100 96.9 01/29/18 12:00 3.0 28 01/29/18 09:10 59 135/75 01/29/18 09:00 T-piece 3.0 01/29/18 08:00 62 01/29/18 08:00 96.8 59 20 135/75 (95) 99 96.8 01/29/18 08:00 3.0 28 01/29/18 07:39 T-piece 8.0 35 01/29/18 07:38 98 T-piece 8.0 35 01/29/18 07:37 59 18 T-piece 8.0 35 01/29/18 04:00 66 01/29/18 04:00 97.0 64 20 111/62 (78) 98 97.0 01/29/18 04:00 3.0 28 01/29/18 01:17 T-piece 8.0 30 01/29/18 01:17 99 T-piece 8.0 30 01/29/18 00:00 61 01/29/18 00:00 97.0 60 18 119/74 (89) 96 97.0 01/28/18 21:00 T-piece 3.0 01/28/18 20:00 96.8 63 18 118/75 (89) 100 96.8 01/28/18 20:00 66 01/28/18 20:00 3.0 28 01/28/18 19:36 98 T-piece 8.0 30 01/28/18 19:36 T-piece 8.0 30 01/28/18 19:36 65 20 T-piece 8.0 30 01/28/18 16:00 64 01/28/18 16:00 97.5 86 18 132/76 (94) 100 97.5 01/28/18 16:00 30 01/28/18 14:37 Trach Collar 3.0 01/28/18 13:35 98.0 72 20 132/70 100 Trach Collar 2.0 98.0 Intake and Output 01/28/18 01/29/18 19:00 07:00 Intake Total 50 ml 230 ml Output Total 0 ml Balance 50 ml 230 ml Intake Free Water 30 ml 90 ml Tube Feeding 20 ml 140 ml Output Urine Total 0 ml # Voids 2 Laboratory Tests Test 01/29/18 05:40 White Blood Count 6.2 K/UL (4.8-10.8) # Red Blood Count 4.98 M/UL (4.20-5.40) Hemoglobin 12.1 G/DL (12.0-16.0) Hematocrit 38.4 % (37.0-47.0) Mean Corpuscular Volume 77 FL (80-99) L Mean Corpuscular Hemoglobin 24.4 PG (27.0-31.0) L Mean Corpuscular Hemoglobin Concent 31.6 G/DL (32.0-36.0) L Red Cell Distribution Width 12.2 % (11.6-14.8) Platelet Count 197 K/UL (150-450) Mean Platelet Volume 8.7 FL (6.5-10.1) Neutrophils (%) (Auto) 69.2 % (45.0-75.0) Lymphocytes (%) (Auto) 18.0 % (20.0-45.0) L Monocytes (%) (Auto) 9.4 % (1.0-10.0) Eosinophils (%) (Auto) 1.9 % (0.0-3.0) Basophils (%) (Auto) 1.5 % (0.0-2.0) Sodium Level 132 MMOL/L (136-145) L Potassium Level 4.4 MMOL/L (3.5-5.1) Chloride Level 100 MMOL/L (98-107) Carbon Dioxide Level 27 MMOL/L (21-32) Anion Gap 5 mmol/L (5-15) Blood Urea Nitrogen 31 mg/dL (7-18) H Creatinine 0.7 MG/DL (0.55-1.30) Estimat Glomerular Filtration Rate mL/min (>60) Glucose Level 91 MG/DL (74-106) Calcium Level 8.7 MG/DL (8.5-10.1) Total Bilirubin 0.8 MG/DL (0.2-1.0) Aspartate Amino Transf (AST/SGOT) 38 U/L (15-37) H Alanine Aminotransferase (ALT/SGPT) 79 U/L (12-78) H Alkaline Phosphatase 445 U/L (46-116) H Total Protein 8.5 G/DL (6.4-8.2) H Albumin 2.6 G/DL (3.4-5.0) L Globulin 5.9 g/dL Albumin/Globulin Ratio 0.4 (1.0-2.7) L Height (Feet): 5 Height (Inches): 5.00 Weight (Pounds): 165 General Appearance: alert Cardiovascular: normal rate Abdominal Exam: normal bowel sounds, non tender, soft, GT site - c/d/i Kathy Urrutia NP Jan 29, 2018 12:36
[2018-01-29] MEDS: Cefepime HCl 2 GM in D5W 110 ML IV SCH (14:42)
[2018-01-29 16:00] VITALS: BP 134/79
--- NOTE | 2018-01-29 17:15 | History and Physical Report ---
DATE OF ADMISSION: 01/29/2018 CONSULTANTS: 1. Reyna Lilly M.D. 2. Carter Reed M.D. 3. Mahesh Mullen M.D. 4. Olivier Pineda M.D. CHIEF COMPLAINT: Vomiting and abdominal pain. BRIEF HISTORY: This is an 87-year-old female from [facility], presented to [facility] last night with history of vomiting. The patient was diagnosed with the above, and urinary tract infection and sepsis and admitted to telemetry for further care. Currently, trach, aerosol, lethargic in bed, and nonverbal. PAST MEDICAL HISTORY: Includes respiratory failure, seizure, hypertension, and gastroesophageal reflux disease. PAST SURGICAL HISTORY: G-tube and trach. MEDICATIONS: Include NovoLog, Norvasc, Keppra, Dilantin, heparin, vancomycin, cefepime, Tylenol, morphine, Zofran, Restoril, and Pyridium. ALLERGIES: Denies. SOCIAL HISTORY: Unable to obtain secondary to the patient's condition. REVIEW OF SYSTEMS: Unavailable. PHYSICAL EXAMINATION: GENERAL: The patient has trach, aerosol, lethargic in bed, nonverbal. VITAL SIGNS: Temperature 96, pulse 66, respirations 18, and blood pressure 120/75. CARDIOVASCULAR: No murmurs. LUNGS: Poor air exchange. ABDOMEN: Bowel sounds distant. EXTREMITIES: No cyanosis or edema. NEUROLOGIC: The patient is flaccid in bed, not following directions. LABORATORY DATA: Labs, at this time, show initial white count 12.8, now 6.2, otherwise CBC is normal. BMP shows sodium 132 and BUN 31. AST is 38, ALT 79, and alkaline phosphatase 445. Troponin 0.00. INR is 1.1 and PTT is 35. Urinalysis show 3+ leukocyte esterase. ASSESSMENT: 1. Chronic respiratory failure. 2. Urinary tract infection. 3. Sepsis. 4. Congestive heart failure. 5. Vomiting. 6. Seizure. 7. Hypertension. 8. Gastroesophageal reflux disease. PLAN: 1. O2 and pulmonary treatment. 2. Trach care. 3. Antibiotics per Infectious Disease. 4. Blood pressure and seizure control. 5. Dietary followup. 6. CBC and BMP in the morning. Jean Claude Sorto D.O. DR: TAYO JOB#: [id number] CC:
[2018-01-29 20:00] VITALS: BP 137/97
[2018-01-30] VITALS: BP 130/84
[2018-01-30 04:00] VITALS: BP 136/84
[2018-01-30] MEDS: NovoLOG Insulin Flexpen SUBQ SCH ×4 (06:00→18:00)
--- NOTE | 2018-01-30 07:45 | Pulmonology Progress Note ---
Assessment/Plan Assessment/Plan ASSESSMENT chronic respiratory failure tracheostomy status bacteremia with GPC UTI with Providencia vomiting HTN urgency -resolved dehydration dysphagia, feeding by G-tube PLAN OF CARE tele titrate FiO2 to keep pulse ox above 92%, pulmonary toilet prn abx, ID follows urine culture+Providencia, blood culture +GPC leukocytosis resolved IV fluids monitor renal parameters, lytes ,avoid nephrotoxic , correct electrolytes prn BP management with CCB cardio follows previous ECHO with pEF LFT trending down hepatitis panel seizure precaution , continue Dilantin and Keppra BS management with SSI bowel regimen DVT GI prophylaxis antiemetics prn strict aspiration precaution G-tube feeding , monitor tolerance, supportive care transfer to CT case discussed and evaluated by supervising physician Subjective Allergies: Coded Allergies: No Known Allergies (Verified , 08/30/10) Subjective tele negative SR with 1 st degree AV block no signs of resp distress BP stabilized Objective Last 24 Hour Vital Signs Date Time Temp Pulse Resp B/P (MAP) Pulse Ox O2 Delivery O2 Flow Rate FiO2 01/30/18 04:00 3.0 30 01/30/18 04:00 96.4 60 18 136/84 (101) 100 96.4 01/30/18 04:00 61 01/30/18 00:26 T-piece 8.0 30 01/30/18 00:26 99 T-piece 8.0 30 01/30/18 00:15 3.0 30 01/30/18 00:00 97.4 66 22 130/84 (99) 98 97.4 01/30/18 00:00 65 01/29/18 21:00 T-piece 3.0 01/29/18 20:00 69 01/29/18 20:00 3.0 30 01/29/18 20:00 97.5 69 18 137/97 (110) 98 97.5 01/29/18 19:41 T-piece 8.0 30 01/29/18 19:39 99 T-piece 8.0 30 01/29/18 16:00 68 01/29/18 16:00 96.3 66 20 134/79 (97) 99 96.3 01/29/18 16:00 3.0 28 01/29/18 13:58 T-piece 8.0 35 01/29/18 13:58 98 T-piece 8.0 35 01/29/18 12:00 96.9 66 18 128/75 (92) 100 96.9 01/29/18 12:00 65 01/29/18 12:00 3.0 28 01/29/18 09:10 59 135/75 01/29/18 09:00 T-piece 3.0 01/29/18 08:00 62 01/29/18 08:00 96.8 59 20 135/75 (95) 99 96.8 01/29/18 08:00 3.0 28 01/29/18 07:39 T-piece 8.0 35 01/29/18 07:38 98 T-piece 8.0 35 01/29/18 07:37 59 18 T-piece 8.0 35 Intake and Output 01/29/18 01/30/18 19:00 07:00 Intake Total 340 ml Balance 340 ml Intake Free Water 90 ml Tube Feeding 250 ml # Voids 2 General Appearance: no acute distress, other - bedridden, lethargic, chroncially ill ,contracted female HEENT: normocephalic, atraumatic, status post trach - Portex#8, secretions moderate, yellow, thick Respiratory/Chest: no accessory muscle use, decreased breath sounds Cardiovascular: normal rate - SR with 1 st degree AV block Abdomen: normal bowel sounds, soft, non tender, other - G tube Neurologic/Psychiatric: abnormal gait - bedridden, other - contracted BUE Musculoskeletal: atrophy - BLE Microbiology Date/Time Source Procedure Growth Status 01/28/18 15:45 Blood Blood Culture - Preliminary Gram Positive Cocci Resulted 01/28/18 15:30 Blood Blood Culture - Preliminary Gram Positive Cocci Resulted 01/28/18 11:17 Urine,Clean Catch Urine Culture - Final Providencia Stuartii Complete 01/28/18 11:17 Rectum VRE Culture - Final NO VANCOMYCIN RESISTANT ENTEROCOCCUS ... Complete 01/28/18 11:17 Rectum - Final NO CARBAPENEM-RESISTANT ENTEROBACTERI... Complete Current Medications Medications (Trade) Dose Ordered Sig/Junior Route PRN Reason Start Time Stop Time Status Last Admin Dose Admin Acetaminophen (Tylenol) 650 mg Q4H PRN ORAL fever 01/28/18 13:15 02/27/18 13:14 Albuterol/ Ipratropium (Albuterol/ Ipratropium) 3 ml Q4H PRN HHN Shortness of Breath 01/28/18 13:15 02/02/18 13:14 Amlodipine Besylate (Norvasc) 10 mg DAILY GT 01/29/18 09:00 02/28/18 08:59 01/29/18 09:10 Cefepime HCl 2 gm/ Dextrose 110 ml @ 220 mls/hr Q24H IV 01/28/18 15:00 02/04/18 14:59 01/29/18 14:42 Dextrose (Dextrose 50%) 25 ml Q30M PRN IV Hypoglycemia 01/28/18 20:45 02/27/18 20:44 Dextrose (Dextrose 50%) 50 ml Q30M PRN IV Hypoglycemia 01/28/18 20:45 02/27/18 20:44 Heparin Sodium (Porcine) (Heparin 5000 units/ml) 5,000 units EVERY 12 HOURS SUBQ 01/28/18 21:00 02/27/18 20:59 01/29/18 22:50 Insulin Aspart (NovoLOG) Q6HR SUBQ 01/29/18 18:00 02/27/18 20:59 Levetiracetam (Keppra) 500 mg Q12H GT 01/28/18 21:00 02/27/18 20:59 01/29/18 22:49 Morphine Sulfate (Morphine Sulfate) 2 mg Q4H PRN IVP Moderate Pain (Pain Scale 4-6) 01/28/18 13:15 02/04/18 13:14 Ondansetron HCl (Zofran) 4 mg Q6H PRN IVP Nausea & Vomiting 01/28/18 13:15 02/27/18 13:14 Phenazopyridine HCl (Pyridium) 100 mg DAILYPRN PRN ORAL dysuria 01/28/18 13:15 02/27/18 13:14 Phenytoin (Dilantin) 200 mg EVERY 12 HOURS GT 01/28/18 21:00 02/27/18 20:59 01/29/18 22:48 Polyethylene Glycol (Miralax) 17 gm DAILYPRN PRN ORAL Constipation 01/28/18 13:15 02/27/18 13:14 Temazepam (Restoril) 15 mg HSPRN PRN ORAL Insomnia 01/28/18 13:15 02/04/18 13:14 Aura Rajput EMBLEM FUSER TENDER Jan 30, 2018 07:45
[2018-01-30 08:00] VITALS: BP 134/75
--- NOTE | 2018-01-30 08:46 | General Progress Note ---
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 SNOMED: 165250725 Status: stable Status Narrative Assessment/Plan LFT elevation >> patient on Dilantin no recent vomiting supportive care low dose reglan ATC GTFs per RD at low rate to goal ppi abx bowel regime fu labs Subjective ROS Limited/Unobtainable: No Allergies: Coded Allergies: No Known Allergies (Verified , 08/30/10) Objective Last 24 Hour Vital Signs Date Time Temp Pulse Resp B/P (MAP) Pulse Ox O2 Delivery O2 Flow Rate FiO2 01/30/18 07:45 98 T-piece 8.0 30 01/30/18 07:45 T-piece 8.0 30 01/30/18 04:00 3.0 30 01/30/18 04:00 96.4 60 18 136/84 (101) 100 96.4 01/30/18 04:00 61 01/30/18 00:26 T-piece 8.0 30 01/30/18 00:26 99 T-piece 8.0 30 01/30/18 00:15 3.0 30 01/30/18 00:00 97.4 66 22 130/84 (99) 98 97.4 01/30/18 00:00 65 01/29/18 21:00 T-piece 3.0 01/29/18 20:00 69 01/29/18 20:00 3.0 30 01/29/18 20:00 97.5 69 18 137/97 (110) 98 97.5 01/29/18 19:41 T-piece 8.0 30 01/29/18 19:39 99 T-piece 8.0 30 01/29/18 16:00 68 01/29/18 16:00 96.3 66 20 134/79 (97) 99 96.3 01/29/18 16:00 3.0 28 01/29/18 13:58 T-piece 8.0 35 01/29/18 13:58 98 T-piece 8.0 35 01/29/18 12:00 96.9 66 18 128/75 (92) 100 96.9 01/29/18 12:00 65 01/29/18 12:00 3.0 28 01/29/18 09:10 59 135/75 01/29/18 09:00 T-piece 3.0 Intake and Output 01/29/18 01/30/18 19:00 07:00 Intake Total 340 ml Balance 340 ml Intake Free Water 90 ml Tube Feeding 250 ml # Voids 2 Height (Feet): 5 Height (Inches): 5.00 Weight (Pounds): 165 General Appearance: lethargic EENT: normal ENT inspection Neck: supple Cardiovascular: normal rate Respiratory/Chest: decreased breath sounds Abdomen: normal bowel sounds, non tender, soft Extremities: non-tender Olivier Pineda MD Jan 30, 2018 08:45
[2018-01-30] MEDS: Phenytoin Susp 100mg/4ml GT SCH ×2 (08:58→21:06)
[2018-01-30] MEDS: Heparin 5000 units/ml inj SUBQ SCH ×2 (09:06→21:16)
--- NOTE | 2018-01-30 09:09 | General Progress Note ---
Assessment/Plan Problem List: (1) Seizure ICD Codes: R56.9 - Unspecified convulsions SNOMED: 13503989 (2) UTI (lower urinary tract infection) ICD Codes: N39.0 - UTI (lower urinary tract infection) SNOMED: 1944229 (3) GERD (gastroesophageal reflux disease) ICD Codes: K21.9 - Gastro-esophageal reflux disease without esophagitis SNOMED: 876837150 (4) HTN (hypertension) ICD Codes: I10 - Essential (primary) hypertension SNOMED: 92189777 (5) Chronic respiratory failure ICD Codes: J96.10 - Chronic respiratory failure SNOMED: 91079974 (6) Sepsis ICD Codes: A41.9 - Sepsis, unspecified organism SNOMED: 95642603 Status: unchanged Assessment/Plan o2 pulm tx trach care abx cbc bmp am Subjective Constitutional: Reports: weakness Allergies: Coded Allergies: No Known Allergies (Verified , 08/30/10) All Systems: reviewed and negative except above Subjective trach aerosol calm Objective Last 24 Hour Vital Signs Date Time Temp Pulse Resp B/P (MAP) Pulse Ox O2 Delivery O2 Flow Rate FiO2 01/30/18 08:59 62 134/75 01/30/18 07:45 98 T-piece 8.0 30 01/30/18 07:45 T-piece 8.0 30 01/30/18 04:00 3.0 30 01/30/18 04:00 96.4 60 18 136/84 (101) 100 96.4 01/30/18 04:00 61 01/30/18 00:26 T-piece 8.0 30 01/30/18 00:26 99 T-piece 8.0 30 01/30/18 00:15 3.0 30 01/30/18 00:00 97.4 66 22 130/84 (99) 98 97.4 01/30/18 00:00 65 01/29/18 21:00 T-piece 3.0 01/29/18 20:00 69 01/29/18 20:00 3.0 30 01/29/18 20:00 97.5 69 18 137/97 (110) 98 97.5 01/29/18 19:41 T-piece 8.0 30 01/29/18 19:39 99 T-piece 8.0 30 01/29/18 16:00 68 01/29/18 16:00 96.3 66 20 134/79 (97) 99 96.3 01/29/18 16:00 3.0 28 01/29/18 13:58 T-piece 8.0 35 01/29/18 13:58 98 T-piece 8.0 35 01/29/18 12:00 96.9 66 18 128/75 (92) 100 96.9 01/29/18 12:00 65 01/29/18 12:00 3.0 28 01/29/18 09:10 59 135/75 Intake and Output 01/29/18 01/30/18 19:00 07:00 Intake Total 340 ml Balance 340 ml Intake Free Water 90 ml Tube Feeding 250 ml # Voids 2 Laboratory Tests 01/30/18 07:20: White Blood Count [Pending], Red Blood Count [Pending], Hemoglobin [Pending], Hematocrit [Pending], Mean Corpuscular Volume [Pending], Mean Corpuscular Hemoglobin [Pending], Mean Corpuscular Hemoglobin Concent [Pending], Red Cell Distribution Width [Pending], Platelet Count [Pending], Mean Platelet Volume [ Pending], Neutrophils (%) (Auto) [Pending], Lymphocytes (%) (Auto) [Pending], Monocytes (%) (Auto) [Pending], Eosinophils (%) (Auto) [Pending], Basophils (%) (Auto) [Pending], Sodium Level [Pending], Potassium Level [Pending], Chloride Level [Pending], Carbon Dioxide Level [Pending], Blood Urea Nitrogen [Pending], Creatinine [Pending], Estimat Glomerular Filtration Rate [Pending], Glucose Level [Pending], Calcium Level [Pending], Total Bilirubin [Pending], Aspartate Amino Transf (AST/SGOT) [Pending], Alanine Aminotransferase (ALT/SGPT) [Pending] , Alkaline Phosphatase [Pending], Total Protein [Pending], Albumin [Pending], Globulin [Pending] Height (Feet): 5 Height (Inches): 5.00 Weight (Pounds): 165 General Appearance: lethargic EENT: normal ENT inspection Neck: normal alignment Cardiovascular: normal peripheral pulses, normal rate, regular rhythm Respiratory/Chest: chest wall non-tender, lungs clear, normal breath sounds Abdomen: normal bowel sounds, non tender, soft Extremities: normal inspection Edema: no edema noted Arm (L), no edema noted Arm (R), no edema noted Leg (L), no edema noted Leg (R), no edema noted Pedal (L), no edema noted Pedal (R), no edema noted Generalized Neurologic: motor weakness Skin: normal pigmentation, warm/dry Jean Claude Sorto DO Jan 30, 2018 09:09
[2018-01-30 09:12] LABS: BASOPHILS % (AUTO) 0.9 % (0.0-2.0); EOSINOPHILS % (AUTO) 1.7 % (0.0-3.0); HEMATOCRIT 38.8 % (37.0-47.0); HEMOGLOBIN 12.2 G/DL (12.0-16.0); LYMPHOCYTES % (AUTO) 28.1 % (20.0-45.0); MEAN CORPUSCULAR VOLUME 77 FL (80-99); MONOCYTES % (AUTO) 12.8 % (1.0-10.0); NEUTROPHILS % (AUTO) 56.5 % (45.0-75.0); PLATELET COUNT 230 K/UL (150-450); RED BLOOD COUNT 5.03 M/UL (4.20-5.40); RED CELL DISTRIBUTION WIDTH 12.4 % (11.6-14.8); WHITE BLOOD COUNT 3.5 K/UL (4.8-10.8)
[2018-01-30 09:45] LABS: ALANINE AMINOTRANSFERASE 93 U/L (12-78); ALBUMIN 2.6 G/DL (3.4-5.0); ALBUMIN/GLOBULIN RATIO 0.4 (1.0-2.7); ALKALINE PHOSPHATASE 489 U/L (46-116); ANION GAP 8 mmol/L (5-15); ASPARTATE AMINO TRANSFERASE 59 U/L (15-37); BILIRUBIN,TOTAL 0.6 MG/DL (0.2-1.0); BLOOD UREA NITROGEN 30 mg/dL (7-18); CARBON DIOXIDE 27 MMOL/L (21-32); CHLORIDE 101 MMOL/L (98-107); CREATININE 0.7 MG/DL (0.55-1.30); POTASSIUM 4.3 MMOL/L (3.5-5.1); SODIUM 136 MMOL/L (136-145)
[2018-01-30] MEDS: levETIRAcetam 500mg/5ml Liquid GT SCH ×2 (10:11→21:05)
[2018-01-30 12:00] VITALS: BP 116/81
--- NOTE | 2018-01-30 12:50 | Infectious Diseases Prog Note ---
Assessment/Plan Assessment/Plan 87 yo female with PMHx of DM, HTN, CHF, COPD, CVA (S/P Peg and Trach) and dementia who presented to the ED on 01/28/18 from a alf with Hx of vomiting and weakness. Afebrile Leukocytosis Resolved UTI vs Gastroenteritis UTI UA positive Unable to assess symptoms UCx Providencia Bactremia : GPC Transaminitis / alk Ph elevation Ro billiary Dis 01/28 CT: No acute findings identified in the abdomen or pelvis. 01/28 CXR: No acute findings identified in the abdomen or pelvis. DM HTN CAD CHF COPD CVA/TIA Dementia Trach/T-tube dependent PLAN: - Continue Cefepime #2 /7 and Vancomcyin # 2 - f/u cultures - rpt blood cX - Monitor CBC and Temps - Supportive care - US of Abd Subjective Allergies: Coded Allergies: No Known Allergies (Verified , 08/30/10) Subjective comfortable Afebrile Objective Vital Signs Last 24 Hour Vital Signs Date Time Temp Pulse Resp B/P (MAP) Pulse Ox O2 Delivery O2 Flow Rate FiO2 01/30/18 09:00 T-piece 3.0 01/30/18 08:59 62 134/75 01/30/18 08:00 97.3 62 18 134/75 (94) 99 97.3 01/30/18 08:00 3.0 30 01/30/18 07:55 61 01/30/18 07:45 98 T-piece 8.0 30 01/30/18 07:45 T-piece 8.0 30 01/30/18 04:00 3.0 30 01/30/18 04:00 96.4 60 18 136/84 (101) 100 96.4 01/30/18 04:00 61 01/30/18 00:26 T-piece 8.0 30 01/30/18 00:26 99 T-piece 8.0 30 01/30/18 00:15 3.0 30 01/30/18 00:00 97.4 66 22 130/84 (99) 98 97.4 01/30/18 00:00 65 01/29/18 21:00 T-piece 3.0 01/29/18 20:00 69 01/29/18 20:00 3.0 30 01/29/18 20:00 97.5 69 18 137/97 (110) 98 97.5 01/29/18 19:41 T-piece 8.0 30 01/29/18 19:39 99 T-piece 8.0 30 01/29/18 16:00 68 01/29/18 16:00 96.3 66 20 134/79 (97) 99 96.3 01/29/18 16:00 3.0 28 01/29/18 13:58 T-piece 8.0 35 01/29/18 13:58 98 T-piece 8.0 35 Height (Feet): 5 Height (Inches): 5.00 Weight (Pounds): 165 HEENT: mucous membranes moist Respiratory/Chest: no respiratory distress Cardiovascular: normal peripheral pulses Abdomen: soft, non tender Microbiology Date/Time Source Procedure Growth Status 01/28/18 15:45 Blood Blood Culture - Preliminary Gram Positive Cocci Resulted 01/28/18 15:30 Blood Blood Culture - Preliminary Gram Positive Cocci Resulted 01/28/18 11:17 Nasal Nares MRSA Culture - Final NO METHICILLIN RESISTANT STAPH AUREUS... Complete 01/28/18 11:17 Urine,Clean Catch Urine Culture - Final Providencia Stuartii Complete 01/28/18 11:17 Rectum VRE Culture - Final NO VANCOMYCIN RESISTANT ENTEROCOCCUS ... Complete 01/28/18 11:17 Rectum - Final NO CARBAPENEM-RESISTANT ENTEROBACTERI... Complete Laboratory Tests Test 01/30/18 07:20 White Blood Count 3.5 K/UL (4.8-10.8) L Red Blood Count 5.03 M/UL (4.20-5.40) Hemoglobin 12.2 G/DL (12.0-16.0) Hematocrit 38.8 % (37.0-47.0) Mean Corpuscular Volume 77 FL (80-99) L Mean Corpuscular Hemoglobin 24.3 PG (27.0-31.0) L Mean Corpuscular Hemoglobin Concent 31.5 G/DL (32.0-36.0) L Red Cell Distribution Width 12.4 % (11.6-14.8) Platelet Count 230 K/UL (150-450) Mean Platelet Volume 8.5 FL (6.5-10.1) Neutrophils (%) (Auto) 56.5 % (45.0-75.0) Lymphocytes (%) (Auto) 28.1 % (20.0-45.0) Monocytes (%) (Auto) 12.8 % (1.0-10.0) H Eosinophils (%) (Auto) 1.7 % (0.0-3.0) Basophils (%) (Auto) 0.9 % (0.0-2.0) Sodium Level 136 MMOL/L (136-145) Potassium Level 4.3 MMOL/L (3.5-5.1) Chloride Level 101 MMOL/L (98-107) Carbon Dioxide Level 27 MMOL/L (21-32) Anion Gap 8 mmol/L (5-15) Blood Urea Nitrogen 30 mg/dL (7-18) H Creatinine 0.7 MG/DL (0.55-1.30) Estimat Glomerular Filtration Rate mL/min (>60) Glucose Level 91 MG/DL (74-106) Calcium Level 9.0 MG/DL (8.5-10.1) Total Bilirubin 0.6 MG/DL (0.2-1.0) Aspartate Amino Transf (AST/SGOT) 59 U/L (15-37) H Alanine Aminotransferase (ALT/SGPT) 93 U/L (12-78) H Alkaline Phosphatase 489 U/L (46-116) H Total Protein 8.6 G/DL (6.4-8.2) H Albumin 2.6 G/DL (3.4-5.0) L Globulin 6.0 g/dL Albumin/Globulin Ratio 0.4 (1.0-2.7) L Current Medications Medications (Trade) Dose Ordered Sig/Junior Route PRN Reason Start Time Stop Time Status Last Admin Dose Admin Acetaminophen (Tylenol) 650 mg Q4H PRN ORAL fever 01/28/18 13:15 02/27/18 13:14 Albuterol/ Ipratropium (Albuterol/ Ipratropium) 3 ml Q4H PRN HHN Shortness of Breath 01/28/18 13:15 02/02/18 13:14 Amlodipine Besylate (Norvasc) 10 mg DAILY GT 01/29/18 09:00 02/28/18 08:59 01/30/18 08:59 Cefepime HCl 2 gm/ Dextrose 110 ml @ 220 mls/hr Q24H IV 01/28/18 15:00 02/04/18 14:59 01/29/18 14:42 Dextrose (Dextrose 50%) 25 ml Q30M PRN IV Hypoglycemia 01/28/18 20:45 02/27/18 20:44 Dextrose (Dextrose 50%) 50 ml Q30M PRN IV Hypoglycemia 01/28/18 20:45 02/27/18 20:44 Famotidine (Pepcid I.v.) 20 mg DAILY IVP 01/30/18 09:00 03/01/18 08:59 01/30/18 10:11 Heparin Sodium (Porcine) (Heparin 5000 units/ml) 5,000 units EVERY 12 HOURS SUBQ 01/28/18 21:00 02/27/18 20:59 01/30/18 09:06 Insulin Aspart (NovoLOG) Q6HR SUBQ 01/29/18 18:00 02/27/18 20:59 Levetiracetam (Keppra) 500 mg Q12H GT 01/28/18 21:00 02/27/18 20:59 01/30/18 10:11 Morphine Sulfate (Morphine Sulfate) 2 mg Q4H PRN IVP Moderate Pain (Pain Scale 4-6) 01/28/18 13:15 02/04/18 13:14 Ondansetron HCl (Zofran) 4 mg Q6H PRN IVP Nausea & Vomiting 01/28/18 13:15 02/27/18 13:14 Phenazopyridine HCl (Pyridium) 100 mg DAILYPRN PRN ORAL dysuria 01/28/18 13:15 02/27/18 13:14 Phenytoin (Dilantin) 200 mg EVERY 12 HOURS GT 01/28/18 21:00 02/27/18 20:59 01/30/18 08:58 Polyethylene Glycol (Miralax) 17 gm DAILYPRN PRN ORAL Constipation 01/28/18 13:15 02/27/18 13:14 Sodium Chloride 1,000 ml @ 50 mls/hr Q20H IV 01/30/18 08:30 03/01/18 08:29 01/30/18 08:30 Temazepam (Restoril) 15 mg HSPRN PRN ORAL Insomnia 01/28/18 13:15 02/04/18 13:14 Mahesh Mlulen MD Jan 30, 2018 12:50
[2018-01-30 16:00] VITALS: BP 126/78
[2018-01-30] MEDS: Cefepime HCl 2 GM in D5W 110 ML IV SCH (16:13)
[2018-01-30] MEDS ORDERED: Albuterol/Ipratropium 3ml neb HHN PRN (18:00)
[2018-01-30] MEDS ORDERED: Miralax 17gm pkt ORAL PRN (18:00)
[2018-01-30] MEDS ORDERED: Morphine Sulfate 2mg/ml Inj IVP PRN (18:00)
[2018-01-30 20:22] VITALS: BP 100/44
[2018-01-31] VITALS (7 sets, daily range): BP systolic 121–158; BP diastolic 68–86
[2018-01-31] MEDS: NovoLOG Insulin Flexpen SUBQ SCH ×4 (05:23→17:06)
--- NOTE | 2018-01-31 06:43 | General Progress Note ---
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 SNOMED: 278664155 Status: stable Status Narrative Assessment/Plan LFT elevation >> patient on Dilantin no recent vomiting supportive care low dose reglan ATC GTFs per RD at low rate to goal ppi abx bowel regime fu labs Subjective ROS Limited/Unobtainable: No Allergies: Coded Allergies: No Known Allergies (Verified , 08/30/10) Objective Last 24 Hour Vital Signs Date Time Temp Pulse Resp B/P (MAP) Pulse Ox O2 Delivery O2 Flow Rate FiO2 01/31/18 04:00 96.6 61 20 121/68 (85) 98 96.6 01/31/18 01:29 T-piece 8.0 30 01/31/18 01:29 97 T-piece 8.0 30 01/31/18 00:00 96.7 70 20 133/75 (94) 100 96.7 01/30/18 20:58 T-piece 3.0 01/30/18 20:22 96.8 65 20 100/44 (62) 98 96.8 01/30/18 19:29 T-piece 8.0 30 01/30/18 19:29 98 T-piece 8.0 30 01/30/18 16:00 97.5 62 18 126/78 (94) 99 97.5 01/30/18 16:00 3.0 30 01/30/18 15:42 61 01/30/18 13:44 T-piece 8.0 30 01/30/18 13:44 99 T-piece 8.0 30 01/30/18 12:00 97.5 57 19 116/81 (93) 99 97.5 01/30/18 12:00 3.0 30 01/30/18 11:58 68 01/30/18 09:00 T-piece 3.0 01/30/18 08:59 62 134/75 01/30/18 08:00 97.3 62 18 134/75 (94) 99 97.3 01/30/18 08:00 3.0 30 01/30/18 07:55 61 01/30/18 07:45 98 T-piece 8.0 30 01/30/18 07:45 T-piece 8.0 30 Intake and Output 01/30/18 01/31/18 19:00 07:00 Intake Total 25 ml 650 ml Balance 25 ml 650 ml Intake Free Water 100 ml IV Total 25 ml 500 ml Tube Feeding 50 ml # Voids 3 # Bowel Movements 1 Laboratory Tests 01/30/18 07:20: White Blood Count 3.5L, Red Blood Count 5.03, Hemoglobin 12.2, Hematocrit 38.8, Mean Corpuscular Volume 77L, Mean Corpuscular Hemoglobin 24.3L, Mean Corpuscular Hemoglobin Concent 31.5L, Red Cell Distribution Width 12.4, Platelet Count 230, Mean Platelet Volume 8.5, Neutrophils (%) (Auto) 56.5, Lymphocytes (%) (Auto) 28.1, Monocytes (%) (Auto) 12.8H, Eosinophils (%) (Auto) 1.7, Basophils (%) (Auto) 0.9, Sodium Level 136, Potassium Level 4.3, Chloride Level 101, Carbon Dioxide Level 27, Anion Gap 8, Blood Urea Nitrogen 30H, Creatinine 0.7, Estimat Glomerular Filtration Rate , Glucose Level 91, Calcium Level 9.0, Total Bilirubin 0.6, Aspartate Amino Transf (AST/SGOT) 59H, Alanine Aminotransferase (ALT/SGPT) 93H, Alkaline Phosphatase 489H, Total Protein 8.6H, Albumin 2.6L, Globulin 6.0, Albumin/Globulin Ratio 0.4L Height (Feet): 5 Height (Inches): 5.00 Weight (Pounds): 165 General Appearance: no apparent distress EENT: normal ENT inspection Neck: supple Cardiovascular: normal rate Respiratory/Chest: decreased breath sounds Abdomen: normal bowel sounds, non tender, soft Extremities: non-tender Vosoghi,Olivier MD Jan 31, 2018 06:43
--- NOTE | 2018-01-31 07:51 | Pulmonology Progress Note ---
Assessment/Plan Assessment/Plan ASSESSMENT chronic respiratory failure tracheostomy status bacteremia with GPC UTI with Providencia vomiting HTN urgency -resolved dehydration dysphagia, feeding by G-tube transaminitis PLAN OF CARE [facility] floor titrate FiO2 to keep pulse ox above 92%, pulmonary toilet prnand ATC suction prn CXR in am abx, ID follows urine culture+Providencia, blood culture +GPC leukocytosis resolved IV fluids monitor renal parameters, lytes ,avoid nephrotoxic , correct electrolytes prn BP management with CCB cardio follows previous ECHO with pEF LFT trending down hepatitis panel seizure precaution , continue Dilantin and Keppra BS management with SSI bowel regimen DVT GI prophylaxis antiemetics prn strict aspiration precaution G-tube feeding , monitor tolerance, supportive care trend LFT, hep panel negative, no acute findings on CT A/P case discussed and evaluated by supervising physician Subjective Allergies: Coded Allergies: No Known Allergies (Verified , 08/30/10) Subjective transferred to [place] BP stable Objective Last 24 Hour Vital Signs Date Time Temp Pulse Resp B/P (MAP) Pulse Ox O2 Delivery O2 Flow Rate FiO2 01/31/18 04:00 96.6 61 20 121/68 (85) 98 96.6 01/31/18 01:29 T-piece 8.0 30 01/31/18 01:29 97 T-piece 8.0 30 01/31/18 00:00 96.7 70 20 133/75 (94) 100 96.7 01/30/18 20:58 T-piece 3.0 01/30/18 20:22 96.8 65 20 100/44 (62) 98 96.8 01/30/18 19:29 T-piece 8.0 30 01/30/18 19:29 98 T-piece 8.0 30 01/30/18 16:00 97.5 62 18 126/78 (94) 99 97.5 01/30/18 16:00 3.0 30 01/30/18 15:42 61 01/30/18 13:44 T-piece 8.0 30 01/30/18 13:44 99 T-piece 8.0 30 01/30/18 12:00 97.5 57 19 116/81 (93) 99 97.5 01/30/18 12:00 3.0 30 01/30/18 11:58 68 01/30/18 09:00 T-piece 3.0 01/30/18 08:59 62 134/75 01/30/18 08:00 97.3 62 18 134/75 (94) 99 97.3 01/30/18 08:00 3.0 30 01/30/18 07:55 61 Intake and Output 01/30/18 01/31/18 19:00 07:00 Intake Total 25 ml 650 ml Balance 25 ml 650 ml Intake Free Water 100 ml IV Total 25 ml 500 ml Tube Feeding 50 ml # Voids 3 # Bowel Movements 1 Objective General Appearance: no acute distress, other - bedridden, lethargic, chronically ill ,contracted female HEENT: normocephalic, atraumatic, status post trach - Portex#8, secretions moderate, yellow, thick Respiratory/Chest: coarse BS, scattered rhonchi Cardiovascular: normal rate Abdomen: normal bowel sounds, soft, non tender, G tube Neurologic/Psychiatric: abnormal gait - bedridden, other - contracted BUE Musculoskeletal: atrophy - BLE Microbiology Date/Time Source Procedure Growth Status 01/28/18 15:45 Blood Blood Culture - Preliminary Gram Positive Cocci Resulted 01/28/18 15:30 Blood Blood Culture - Preliminary Gram Positive Cocci Gram Positive Cocci#2 Resulted 01/28/18 11:17 Nasal Nares MRSA Culture - Final NO METHICILLIN RESISTANT STAPH AUREUS... Complete 01/28/18 11:17 Urine,Clean Catch Urine Culture - Final Providencia Stuartii Complete 01/28/18 11:17 Rectum VRE Culture - Final NO VANCOMYCIN RESISTANT ENTEROCOCCUS ... Complete 01/28/18 11:17 Rectum - Final NO CARBAPENEM-RESISTANT ENTEROBACTERI... Complete Current Medications Medications (Trade) Dose Ordered Sig/Junior Route PRN Reason Start Time Stop Time Status Last Admin Dose Admin Acetaminophen (Tylenol) 650 mg Q4H PRN ORAL fever 01/30/18 18:00 02/27/18 17:59 Albuterol/ Ipratropium (Albuterol/ Ipratropium) 3 ml Q4H PRN HHN Shortness of Breath 01/30/18 18:00 02/02/18 17:59 Amlodipine Besylate (Norvasc) 10 mg DAILY GT 01/31/18 09:00 02/28/18 08:59 Cefepime HCl 2 gm/ Dextrose 110 ml @ 220 mls/hr Q24H IV 01/31/18 15:00 02/04/18 14:59 Dextrose (Dextrose 50%) 25 ml Q30M PRN IV Hypoglycemia 01/30/18 17:45 02/27/18 20:44 Dextrose (Dextrose 50%) 50 ml Q30M PRN IV Hypoglycemia 01/30/18 17:45 02/27/18 20:44 Famotidine (Pepcid I.v.) 20 mg DAILY IVP 01/31/18 09:00 03/01/18 08:59 Heparin Sodium (Porcine) (Heparin 5000 units/ml) 5,000 units EVERY 12 HOURS SUBQ 01/30/18 21:00 02/27/18 20:59 01/30/18 21:16 Insulin Aspart (NovoLOG) Q6HR SUBQ 01/30/18 18:00 02/27/18 20:59 Levetiracetam (Keppra) 500 mg Q12H GT 01/30/18 21:00 02/27/18 20:59 01/30/18 21:05 Morphine Sulfate (Morphine Sulfate) 2 mg Q4H PRN IVP Moderate Pain (Pain Scale 4-6) 01/30/18 18:00 02/04/18 17:59 Ondansetron HCl (Zofran) 4 mg Q6H PRN IVP Nausea & Vomiting 01/30/18 18:00 02/27/18 17:59 Phenazopyridine HCl (Pyridium) 100 mg DAILYPRN PRN ORAL dysuria 01/30/18 18:00 03/01/18 17:59 Phenytoin (Dilantin) 200 mg EVERY 12 HOURS GT 01/30/18 21:00 02/27/18 20:59 01/30/18 21:06 Polyethylene Glycol (Miralax) 17 gm DAILYPRN PRN ORAL Constipation 01/30/18 18:00 03/01/18 17:59 Sodium Chloride 1,000 ml @ 50 mls/hr Q20H IV 01/30/18 17:45 03/01/18 08:29 01/31/18 06:18 Temazepam (Restoril) 15 mg HSPRN PRN ORAL Insomnia 01/30/18 18:00 02/06/18 17:59 Vancomycin HCl (Vanco rx to dose) 1 ea DAILY PRN MISC Per rx protocol 01/31/18 09:00 03/01/18 12:59 Aura Rajput NP Jan 31, 2018 07:51
[2018-01-31 08:26] LABS: BASOPHILS % (AUTO) 1.1 % (0.0-2.0); HEMATOCRIT 37.9 % (37.0-47.0); HEMOGLOBIN 11.6 G/DL (12.0-16.0); LYMPHOCYTES % (AUTO) 30.2 % (20.0-45.0); MEAN CORPUSCULAR VOLUME 77 FL (80-99); MONOCYTES % (AUTO) 13.2 % (1.0-10.0); NEUTROPHILS % (AUTO) 53.5 % (45.0-75.0); PLATELET COUNT 236 K/UL (150-450); RED BLOOD COUNT 4.89 M/UL (4.20-5.40); RED CELL DISTRIBUTION WIDTH 12.1 % (11.6-14.8)
[2018-01-31 08:42] LABS: ANION GAP 8 mmol/L (5-15); BLOOD UREA NITROGEN 25 mg/dL (7-18); CALCIUM 8.9 MG/DL (8.5-10.1); CARBON DIOXIDE 25 MMOL/L (21-32); CHLORIDE 104 MMOL/L (98-107); CREATININE 0.7 MG/DL (0.55-1.30); POTASSIUM 4.4 MMOL/L (3.5-5.1); SODIUM 137 MMOL/L (136-145)
--- NOTE | 2018-01-31 08:48 | General Progress Note ---
Assessment/Plan Problem List: (1) Seizure ICD Codes: R56.9 - Unspecified convulsions SNOMED: 23931422 (2) UTI (lower urinary tract infection) ICD Codes: N39.0 - UTI (lower urinary tract infection) SNOMED: 0461787 (3) GERD (gastroesophageal reflux disease) ICD Codes: K21.9 - Gastro-esophageal reflux disease without esophagitis SNOMED: 031726618 (4) HTN (hypertension) ICD Codes: I10 - Essential (primary) hypertension SNOMED: 67230015 (5) Chronic respiratory failure ICD Codes: J96.10 - Chronic respiratory failure SNOMED: 42536472 (6) Sepsis ICD Codes: A41.9 - Sepsis, unspecified organism SNOMED: 13363634 Status: unchanged Assessment/Plan o2 pulm tx trach care abx cbc bmp am dc plan if clear Subjective Constitutional: Reports: weakness Allergies: Coded Allergies: No Known Allergies (Verified , 08/30/10) All Systems: reviewed and negative except above Subjective trach aerosol calm Objective Last 24 Hour Vital Signs Date Time Temp Pulse Resp B/P (MAP) Pulse Ox O2 Delivery O2 Flow Rate FiO2 01/31/18 08:07 T-piece 8.0 30 01/31/18 08:06 95 T-piece 8.0 30 01/31/18 04:00 96.6 61 20 121/68 (85) 98 96.6 01/31/18 01:29 T-piece 8.0 30 01/31/18 01:29 97 T-piece 8.0 30 01/31/18 00:00 96.7 70 20 133/75 (94) 100 96.7 01/30/18 20:58 T-piece 3.0 01/30/18 20:22 96.8 65 20 100/44 (62) 98 96.8 01/30/18 19:29 T-piece 8.0 30 01/30/18 19:29 98 T-piece 8.0 30 01/30/18 16:00 97.5 62 18 126/78 (94) 99 97.5 01/30/18 16:00 3.0 30 01/30/18 15:42 61 01/30/18 13:44 T-piece 8.0 30 01/30/18 13:44 99 T-piece 8.0 30 01/30/18 12:00 97.5 57 19 116/81 (93) 99 97.5 01/30/18 12:00 3.0 30 01/30/18 11:58 68 01/30/18 09:00 T-piece 3.0 01/30/18 08:59 62 134/75 Intake and Output 01/30/18 01/31/18 19:00 07:00 Intake Total 25 ml 650 ml Balance 25 ml 650 ml Intake Free Water 100 ml IV Total 25 ml 500 ml Tube Feeding 50 ml # Voids 3 2 # Bowel Movements 1 1 Laboratory Tests 01/31/18 07:30: White Blood Count 4.0L, Red Blood Count 4.89, Hemoglobin 11.6L, Hematocrit 37.9 , Mean Corpuscular Volume 77L, Mean Corpuscular Hemoglobin 23.6L, Mean Corpuscular Hemoglobin Concent 30.5L, Red Cell Distribution Width 12.1, Platelet Count 236, Mean Platelet Volume 8.2, Neutrophils (%) (Auto) 53.5, Lymphocytes (%) (Auto) 30.2, Monocytes (%) (Auto) 13.2H, Eosinophils (%) (Auto) 2.0, Basophils (%) (Auto) 1.1, Sodium Level 137, Potassium Level 4.4, Chloride Level 104, Carbon Dioxide Level 25, Anion Gap 8, Blood Urea Nitrogen 25H, Creatinine 0.7, Estimat Glomerular Filtration Rate , Glucose Level 79, Calcium Level 8.9, Hepatitis A IgM Antibody [Pending], Hepatitis B Surface Antigen [ Pending], Hepatitis B Core IgM Antibody [Pending], Hepatitis C Antibody [Pending ] Height (Feet): 5 Height (Inches): 5.00 Weight (Pounds): 165 General Appearance: lethargic EENT: normal ENT inspection Neck: normal alignment Cardiovascular: normal peripheral pulses, normal rate, regular rhythm Respiratory/Chest: chest wall non-tender, lungs clear, normal breath sounds Abdomen: normal bowel sounds, non tender, soft Extremities: normal inspection Edema: no edema noted Arm (L), no edema noted Arm (R), no edema noted Leg (L), no edema noted Leg (R), no edema noted Pedal (L), no edema noted Pedal (R), no edema noted Generalized Neurologic: motor weakness Skin: normal pigmentation, warm/dry Jean Claude Sorto DO Jan 31, 2018 08:47
[2018-01-31] MEDS: levETIRAcetam 500mg/5ml Liquid GT SCH ×2 (09:16→21:16)
[2018-01-31] MEDS: Phenytoin Susp 100mg/4ml GT SCH ×2 (09:16→21:16)
[2018-01-31] MEDS: Heparin 5000 units/ml inj SUBQ SCH ×2 (09:18→21:20)
[2018-01-31] MEDS ORDERED: NS Irrig 1000ml ONE (10:01)
--- NOTE | 2018-01-31 11:16 | Diagnostic Imaging Report ---
EXAM: US Abdomen Limited, Right Upper Quadrant CLINICAL HISTORY: ABD PAIN TECHNIQUE: Real-time ultrasound of the right upper quadrant with image documentation. COMPARISON: No relevant prior studies available. FINDINGS: Limited due to body habitus. Liver: Unremarkable. No mass. No intrahepatic bile duct dilation. Gallbladder: Distended gallbladder without shadowing stones. No wall thickening. [employer] Mdm Architect reports no Carrasco sign. Common bile duct: Unremarkable as visualized. No stones. No dilation. Pancreas: Unremarkable as visualized. Right kidney: Unremarkable. No stones. No solid mass. No hydronephrosis. IMPRESSION: Technically limited exam. No clear gallstones or other biliary pathology.
[2018-01-31] MEDS: Albuterol/Ipratropium 3ml neb HHN SCH ×2 (12:11→19:53)
[2018-01-31] MEDS: Vancomycin 750mg/NS 250ml IVPB SCH (14:17)
[2018-01-31] MEDS ORDERED: Cefepime HCl 2 GM in D5W 110 ML IV SCH (15:00)
--- NOTE | 2018-01-31 23:41 | Cardiology Progress Note ---
Assessment/Plan Assessment/Plan 1. Accelerated hypertension, continue current amlodipine 10 daily with starting losartan 25mg bid. 2. Failure to thrive and associated hypovolemia, continue hydration and electrolyte replacement. Prior history of 2D echocardiography showing normal LV systolic function. Subjective Subjective No cardiac events. Objective Last 24 Hour Vital Signs Date Time Temp Pulse Resp B/P (MAP) Pulse Ox O2 Delivery O2 Flow Rate FiO2 01/31/18 22:16 T-piece 3.0 01/31/18 20:27 96.9 66 21 158/75 (102) 100 96.9 01/31/18 20:03 65 18 99 T-piece 8.0 30 01/31/18 19:53 T-piece 8.0 30 01/31/18 19:53 99 T-piece 8.0 30 01/31/18 19:53 63 18 99 T-piece 8.0 30 01/31/18 16:00 96.2 64 18 144/84 (104) 100 96.2 01/31/18 12:21 86 20 99 T-piece 8.0 35 01/31/18 12:14 98 T-piece 8.0 30 01/31/18 12:14 T-piece 8.0 30 01/31/18 12:11 62 18 98 T-piece 8.0 30 01/31/18 12:00 96.4 61 17 143/86 (105) 99 96.4 01/31/18 09:16 62 154/80 01/31/18 09:15 T-piece 3.0 01/31/18 08:07 T-piece 8.0 30 01/31/18 08:06 95 T-piece 8.0 30 01/31/18 08:00 96.2 62 18 154/80 (104) 100 96.2 01/31/18 04:00 96.6 61 20 121/68 (85) 98 96.6 01/31/18 01:29 T-piece 8.0 30 01/31/18 01:29 97 T-piece 8.0 30 01/31/18 00:00 96.7 70 20 133/75 (94) 100 96.7 Intake and Output 01/30/18 01/31/18 19:00 07:00 Intake Total 25 ml 700 ml Balance 25 ml 700 ml Intake Free Water 100 ml IV Total 25 ml 550 ml Tube Feeding 50 ml # Voids 3 2 # Bowel Movements 1 1 Laboratory Tests Test 01/31/18 07:30 White Blood Count 4.0 K/UL (4.8-10.8) L Red Blood Count 4.89 M/UL (4.20-5.40) Hemoglobin 11.6 G/DL (12.0-16.0) L Hematocrit 37.9 % (37.0-47.0) Mean Corpuscular Volume 77 FL (80-99) L Mean Corpuscular Hemoglobin 23.6 PG (27.0-31.0) L Mean Corpuscular Hemoglobin Concent 30.5 G/DL (32.0-36.0) L Red Cell Distribution Width 12.1 % (11.6-14.8) Platelet Count 236 K/UL (150-450) Mean Platelet Volume 8.2 FL (6.5-10.1) Neutrophils (%) (Auto) 53.5 % (45.0-75.0) Lymphocytes (%) (Auto) 30.2 % (20.0-45.0) Monocytes (%) (Auto) 13.2 % (1.0-10.0) H Eosinophils (%) (Auto) 2.0 % (0.0-3.0) Basophils (%) (Auto) 1.1 % (0.0-2.0) Sodium Level 137 MMOL/L (136-145) Potassium Level 4.4 MMOL/L (3.5-5.1) Chloride Level 104 MMOL/L (98-107) Carbon Dioxide Level 25 MMOL/L (21-32) Anion Gap 8 mmol/L (5-15) Blood Urea Nitrogen 25 mg/dL (7-18) H Creatinine 0.7 MG/DL (0.55-1.30) Estimat Glomerular Filtration Rate mL/min (>60) Glucose Level 79 MG/DL (74-106) Calcium Level 8.9 MG/DL (8.5-10.1) Hepatitis A IgM Antibody Pending Hepatitis B Surface Antigen Pending Hepatitis B Core IgM Antibody Pending Hepatitis C Antibody Pending Objective HEENT: Atraumatic and normocephalic. Anicteric. Presence of a trach collar. Pupils are equal, round, and reactive to light and accommodation. NECK: JVP cannot be assessed. No carotid bruit. CARDIOVASCULAR: Normal S1, S2. Regular rate and rhythm. No murmurs, gallops, or rubs. PMI is at fourth intercostal space in the midclavicular line. LUNGS: Diminished breath sounds in both bases. ABDOMEN: Soft, nontender, and nondistended. No hepatosplenomegaly. Presence of a G-tube. Positive bowel sounds. EXTREMITIES: No evidence of edema, clubbing, or cyanosis. Carter Reed MD Jan 31, 2018 23:41
[2018-02-01] VITALS: BP 120/60
[2018-02-01] MEDS: Losartan 25mg tab ORAL SCH ×2 (00:44→09:20)
[2018-02-01 04:39] VITALS: BP 129/89
[2018-02-01] MEDS: NovoLOG Insulin Flexpen SUBQ SCH ×4 (05:25→18:00)
[2018-02-01 06:37] LABS: ANION GAP 5 mmol/L (5-15); BLOOD UREA NITROGEN 25 mg/dL (7-18); CALCIUM 8.6 MG/DL (8.5-10.1); CARBON DIOXIDE 28 MMOL/L (21-32); CHLORIDE 105 MMOL/L (98-107); CREATININE 0.7 MG/DL (0.55-1.30); POTASSIUM 4.8 MMOL/L (3.5-5.1); SODIUM 138 MMOL/L (136-145)
[2018-02-01 06:52] LABS: BASOPHILS % (AUTO) 0.9 % (0.0-2.0); EOSINOPHILS % (AUTO) 1.7 % (0.0-3.0); HEMATOCRIT 37.6 % (37.0-47.0); HEMOGLOBIN 11.9 G/DL (12.0-16.0); LYMPHOCYTES % (AUTO) 26.4 % (20.0-45.0); MEAN CORPUSCULAR VOLUME 77 FL (80-99); NEUTROPHILS % (AUTO) 56.1 % (45.0-75.0); PLATELET COUNT 212 K/UL (150-450); RED BLOOD COUNT 4.85 M/UL (4.20-5.40); RED CELL DISTRIBUTION WIDTH 12.2 % (11.6-14.8); WHITE BLOOD COUNT 4.5 K/UL (4.8-10.8)
[2018-02-01 08:00] VITALS: BP 141/80
[2018-02-01] MEDS: Albuterol/Ipratropium 3ml neb HHN SCH ×3 (08:19→19:00)
--- NOTE | 2018-02-01 08:44 | Nephrology Progress Note ---
Assessment/Plan Plan pt seen and examined full consult dictated Objective Objective Last 24 Hour Vital Signs Date Time Temp Pulse Resp B/P (MAP) Pulse Ox O2 Delivery O2 Flow Rate FiO2 02/01/18 08:25 64 20 99 T-piece 8.0 30 02/01/18 08:17 T-piece 8.0 30 02/01/18 08:17 62 20 98 T-piece 8.0 30 02/01/18 08:16 98 T-piece 8.0 30 02/01/18 04:39 96.2 62 21 129/89 (102) 100 96.2 02/01/18 01:39 T-piece 8.0 30 02/01/18 01:39 99 T-piece 8.0 30 02/01/18 00:44 120/60 02/01/18 00:00 96.3 65 21 120/60 (80) 99 96.3 01/31/18 22:16 T-piece 3.0 01/31/18 20:27 96.9 66 21 158/75 (102) 100 96.9 01/31/18 20:03 65 18 99 T-piece 8.0 30 01/31/18 19:53 T-piece 8.0 30 01/31/18 19:53 99 T-piece 8.0 30 01/31/18 19:53 63 18 99 T-piece 8.0 30 01/31/18 16:00 96.2 64 18 144/84 (104) 100 96.2 01/31/18 12:21 86 20 99 T-piece 8.0 35 01/31/18 12:14 98 T-piece 8.0 30 01/31/18 12:14 T-piece 8.0 30 01/31/18 12:11 62 18 98 T-piece 8.0 30 01/31/18 12:00 96.4 61 17 143/86 (105) 99 96.4 01/31/18 09:16 62 154/80 01/31/18 09:15 T-piece 3.0 Intake and Output 01/31/18 02/01/18 19:00 07:00 Intake Total 1380.000 ml 1090 ml Output Total 1050 ml Balance 1380.000 ml 40 ml Intake Free Water 90 ml 100 ml IV Total 870.000 ml 500 ml Tube Feeding 420 ml 490 ml Output Urine Total 1050 ml # Bowel Movements 1 Laboratory Tests 02/01/18 05:20: White Blood Count 4.5L, Red Blood Count 4.85, Hemoglobin 11.9L, Hematocrit 37.6 , Mean Corpuscular Volume 77L, Mean Corpuscular Hemoglobin 24.6L, Mean Corpuscular Hemoglobin Concent 31.8L, Red Cell Distribution Width 12.2, Platelet Count 212, Mean Platelet Volume 8.2, Neutrophils (%) (Auto) 56.1, Lymphocytes (%) (Auto) 26.4, Monocytes (%) (Auto) 15.0H, Eosinophils (%) (Auto) 1.7, Basophils (%) (Auto) 0.9, Sodium Level 138, Potassium Level 4.8, Chloride Level 105, Carbon Dioxide Level 28, Anion Gap 5, Blood Urea Nitrogen 25H, Creatinine 0.7, Estimat Glomerular Filtration Rate , Glucose Level 93, Calcium Level 8.6 Height (Feet): 5 Height (Inches): 5.00 Weight (Pounds): 165 Alyssa Fitzgerald MD Feb 01, 2018 08:44
[2018-02-01] MEDS: levETIRAcetam 500mg/5ml Liquid GT SCH (09:18)
[2018-02-01] MEDS: Phenytoin Susp 100mg/4ml GT SCH (09:19)
[2018-02-01] MEDS: Heparin 5000 units/ml inj SUBQ SCH (09:29)
--- NOTE | 2018-02-01 10:46 | GI Progress Note ---
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 Pineda. Assessment/Plan LFT elevation >> patient on Dilantin no recent vomiting supportive care low dose reglan ATC GTFs per RD at low rate to goal ppi abx bowel regime fu labs dc planning The patient was seen and examined at bedside and all new and available data was reviewed in the patients chart. I agree with the above findings, impression and plan. (Patient seen earlier today. Signature stamp does not reflect patient encounter time.). - Olivier Pineda MD Subjective Subjective limited Objective Last 24 Hour Vital Signs Date Time Temp Pulse Resp B/P (MAP) Pulse Ox O2 Delivery O2 Flow Rate FiO2 02/01/18 09:20 141/80 02/01/18 09:19 68 141/80 02/01/18 08:25 64 20 99 T-piece 8.0 30 02/01/18 08:17 T-piece 8.0 30 02/01/18 08:17 62 20 98 T-piece 8.0 30 02/01/18 08:16 98 T-piece 8.0 30 02/01/18 04:39 96.2 62 21 129/89 (102) 100 96.2 02/01/18 01:39 T-piece 8.0 30 02/01/18 01:39 99 T-piece 8.0 30 02/01/18 00:44 120/60 02/01/18 00:00 96.3 65 21 120/60 (80) 99 96.3 01/31/18 22:16 T-piece 3.0 01/31/18 20:27 96.9 66 21 158/75 (102) 100 96.9 01/31/18 20:03 65 18 99 T-piece 8.0 30 01/31/18 19:53 T-piece 8.0 30 01/31/18 19:53 99 T-piece 8.0 30 01/31/18 19:53 63 18 99 T-piece 8.0 30 01/31/18 16:00 96.2 64 18 144/84 (104) 100 96.2 01/31/18 12:21 86 20 99 T-piece 8.0 35 01/31/18 12:14 98 T-piece 8.0 30 01/31/18 12:14 T-piece 8.0 30 01/31/18 12:11 62 18 98 T-piece 8.0 30 01/31/18 12:00 96.4 61 17 143/86 (105) 99 96.4 Intake and Output 01/31/18 02/01/18 19:00 07:00 Intake Total 1380.000 ml 1090 ml Output Total 1050 ml Balance 1380.000 ml 40 ml Intake Free Water 90 ml 100 ml IV Total 870.000 ml 500 ml Tube Feeding 420 ml 490 ml Output Urine Total 1050 ml # Bowel Movements 1 Laboratory Tests Test 02/01/18 05:20 White Blood Count 4.5 K/UL (4.8-10.8) L Red Blood Count 4.85 M/UL (4.20-5.40) Hemoglobin 11.9 G/DL (12.0-16.0) L Hematocrit 37.6 % (37.0-47.0) Mean Corpuscular Volume 77 FL (80-99) L Mean Corpuscular Hemoglobin 24.6 PG (27.0-31.0) L Mean Corpuscular Hemoglobin Concent 31.8 G/DL (32.0-36.0) L Red Cell Distribution Width 12.2 % (11.6-14.8) Platelet Count 212 K/UL (150-450) Mean Platelet Volume 8.2 FL (6.5-10.1) Neutrophils (%) (Auto) 56.1 % (45.0-75.0) Lymphocytes (%) (Auto) 26.4 % (20.0-45.0) Monocytes (%) (Auto) 15.0 % (1.0-10.0) H Eosinophils (%) (Auto) 1.7 % (0.0-3.0) Basophils (%) (Auto) 0.9 % (0.0-2.0) Sodium Level 138 MMOL/L (136-145) Potassium Level 4.8 MMOL/L (3.5-5.1) Chloride Level 105 MMOL/L (98-107) Carbon Dioxide Level 28 MMOL/L (21-32) Anion Gap 5 mmol/L (5-15) Blood Urea Nitrogen 25 mg/dL (7-18) H Creatinine 0.7 MG/DL (0.55-1.30) Estimat Glomerular Filtration Rate mL/min (>60) Glucose Level 93 MG/DL (74-106) Calcium Level 8.6 MG/DL (8.5-10.1) Height (Feet): 5 Height (Inches): 5.00 Weight (Pounds): 165 General Appearance: no apparent distress, alert Cardiovascular: normal rate Abdominal Exam: soft, GT site - c/d/i Kathy Urrutia NP Feb 01, 2018 10:46
--- NOTE | 2018-02-01 11:19 | General Progress Note ---
Assessment/Plan Problem List: (1) Seizure ICD Codes: R56.9 - Unspecified convulsions SNOMED: 22806062 (2) UTI (lower urinary tract infection) ICD Codes: N39.0 - UTI (lower urinary tract infection) SNOMED: 8659546 (3) GERD (gastroesophageal reflux disease) ICD Codes: K21.9 - Gastro-esophageal reflux disease without esophagitis SNOMED: 622068454 (4) HTN (hypertension) ICD Codes: I10 - Essential (primary) hypertension SNOMED: 90791374 (5) Chronic respiratory failure ICD Codes: J96.10 - Chronic respiratory failure SNOMED: 56764199 (6) Sepsis ICD Codes: A41.9 - Sepsis, unspecified organism SNOMED: 90906104 Status: stable, progressing Assessment/Plan o2 pulm tx trach care abx cbc bmp am dc if clear Subjective Constitutional: Reports: weakness Allergies: Coded Allergies: No Known Allergies (Verified , 08/30/10) All Systems: reviewed and negative except above Subjective trach aerosol calm Objective Last 24 Hour Vital Signs Date Time Temp Pulse Resp B/P (MAP) Pulse Ox O2 Delivery O2 Flow Rate FiO2 02/01/18 09:20 141/80 02/01/18 09:19 68 141/80 02/01/18 09:00 T-piece 3.0 02/01/18 08:25 64 20 99 T-piece 8.0 30 02/01/18 08:17 T-piece 8.0 30 02/01/18 08:17 62 20 98 T-piece 8.0 30 02/01/18 08:16 98 T-piece 8.0 30 02/01/18 08:00 96.7 68 17 141/80 (100) 99 96.7 02/01/18 04:39 96.2 62 21 129/89 (102) 100 96.2 02/01/18 01:39 T-piece 8.0 30 02/01/18 01:39 99 T-piece 8.0 30 02/01/18 00:44 120/60 02/01/18 00:00 96.3 65 21 120/60 (80) 99 96.3 01/31/18 22:16 T-piece 3.0 01/31/18 20:27 96.9 66 21 158/75 (102) 100 96.9 01/31/18 20:03 65 18 99 T-piece 8.0 30 01/31/18 19:53 T-piece 8.0 30 01/31/18 19:53 99 T-piece 8.0 30 01/31/18 19:53 63 18 99 T-piece 8.0 30 01/31/18 16:00 96.2 64 18 144/84 (104) 100 96.2 01/31/18 12:21 86 20 99 T-piece 8.0 35 01/31/18 12:14 98 T-piece 8.0 30 01/31/18 12:14 T-piece 8.0 30 01/31/18 12:11 62 18 98 T-piece 8.0 30 01/31/18 12:00 96.4 61 17 143/86 (105) 99 96.4 Intake and Output 01/31/18 02/01/18 19:00 07:00 Intake Total 1380.000 ml 1090 ml Output Total 1050 ml Balance 1380.000 ml 40 ml Intake Free Water 90 ml 100 ml IV Total 870.000 ml 500 ml Tube Feeding 420 ml 490 ml Output Urine Total 1050 ml # Bowel Movements 1 Laboratory Tests 02/01/18 05:20: White Blood Count 4.5L, Red Blood Count 4.85, Hemoglobin 11.9L, Hematocrit 37.6 , Mean Corpuscular Volume 77L, Mean Corpuscular Hemoglobin 24.6L, Mean Corpuscular Hemoglobin Concent 31.8L, Red Cell Distribution Width 12.2, Platelet Count 212, Mean Platelet Volume 8.2, Neutrophils (%) (Auto) 56.1, Lymphocytes (%) (Auto) 26.4, Monocytes (%) (Auto) 15.0H, Eosinophils (%) (Auto) 1.7, Basophils (%) (Auto) 0.9, Sodium Level 138, Potassium Level 4.8, Chloride Level 105, Carbon Dioxide Level 28, Anion Gap 5, Blood Urea Nitrogen 25H, Creatinine 0.7, Estimat Glomerular Filtration Rate , Glucose Level 93, Calcium Level 8.6 Height (Feet): 5 Height (Inches): 5.00 Weight (Pounds): 165 General Appearance: lethargic EENT: normal ENT inspection Neck: normal alignment Cardiovascular: normal peripheral pulses, normal rate, regular rhythm Respiratory/Chest: chest wall non-tender, lungs clear, normal breath sounds Abdomen: normal bowel sounds, non tender, soft Extremities: normal inspection Edema: no edema noted Arm (L), no edema noted Arm (R), no edema noted Leg (L), no edema noted Leg (R), no edema noted Pedal (L), no edema noted Pedal (R), no edema noted Generalized Neurologic: motor weakness Skin: normal pigmentation, warm/dry Jean Claude Sorto DO Feb 01, 2018 11:19
--- NOTE | 2018-02-01 11:48 | Diagnostic Imaging Report ---
Indication: Shortness of breath Technique: One view of the chest Comparison: 01/28/2018 Findings: There is a fracture deformity of the right proximal humerus, not optimally visualized. Some atelectasis is seen in the right perihilar region. The heart is enlarged. Tracheostomy remains. Mild interstitial edema persist although may be slightly improved. No definite acute infiltrates. Impression: Suggestion of slight improvement of mild pulmonary interstitial edema, over 4 days. Right perihilar atelectasis, not evident previously
[2018-02-01 12:00] VITALS: BP 140/78
--- NOTE | 2018-02-01 12:39 | Infectious Diseases Prog Note ---
Assessment/Plan Assessment/Plan 87 yo female with PMHx of DM, HTN, CHF, COPD, CVA (S/P Peg and Trach) and dementia who presented [facility] the ED on 01/28/18 from [facility] with Hx of vomiting and weakness. Afebrile Leukocytosis Resolved UTI vs Gastroenteritis UTI UA positive Unable to assess symptoms UCx Providencia (S Ceftriaxone) Bactremia : 08/05 S hominis, S. epi- likely contaminant, however high grade,w ill treat with short course Transaminitis / alk Ph elevation -Abd us: Technically limited exam. No clear gallstones or other biliary pathology. -hep panel p 01/28 CT: No acute findings identified in the abdomen or pelvis. 01/28 CXR: No acute findings identified in the abdomen or pelvis. DM HTN CAD CHF COPD CVA/TIA Dementia Trach/T-tube dependent PLAN: - Switch Cefepime # to Ceftriaxone -Continue Vancomcyin # 08/08 -ok to discharge on above regimen; please collect 2 sets of Bcx prior to discharge - f/u cultures - rpt blood cX - Monitor CBC and Temps - Supportive care Discussed with RN Subjective Allergies: Coded Allergies: No Known Allergies (Verified , 08/30/10) Subjective afebrile no leukocytosis Objective Vital Signs Last 24 Hour Vital Signs Date Time Temp Pulse Resp B/P (MAP) Pulse Ox O2 Delivery O2 Flow Rate FiO2 02/01/18 09:20 141/80 02/01/18 09:19 68 141/80 02/01/18 09:00 T-piece 3.0 02/01/18 08:25 64 20 99 T-piece 8.0 30 02/01/18 08:17 T-piece 8.0 30 02/01/18 08:17 62 20 98 T-piece 8.0 30 02/01/18 08:16 98 T-piece 8.0 30 02/01/18 08:00 96.7 68 17 141/80 (100) 99 96.7 02/01/18 04:39 96.2 62 21 129/89 (102) 100 96.2 02/01/18 01:39 T-piece 8.0 30 02/01/18 01:39 99 T-piece 8.0 30 02/01/18 00:44 120/60 02/01/18 00:00 96.3 65 21 120/60 (80) 99 96.3 01/31/18 22:16 T-piece 3.0 01/31/18 20:27 96.9 66 21 158/75 (102) 100 96.9 01/31/18 20:03 65 18 99 T-piece 8.0 30 01/31/18 19:53 T-piece 8.0 30 01/31/18 19:53 99 T-piece 8.0 30 01/31/18 19:53 63 18 99 T-piece 8.0 30 01/31/18 16:00 96.2 64 18 144/84 (104) 100 96.2 Height (Feet): 5 Height (Inches): 5.00 Weight (Pounds): 165 Objective General Appearance: lethargic EENT: normal ENT inspection Neck: normal alignment Cardiovascular: normal peripheral pulses, normal rate, regular rhythm Respiratory/Chest: chest wall non-tender, lungs clear, normal breath sounds Abdomen: normal bowel sounds, non tender, soft Extremities: normal inspection Edema: no edema noted Arm (L), no edema noted Arm (R), no edema noted Leg (L), no edema noted Leg (R), no edema noted Pedal (L), no edema noted Pedal (R), no edema noted Generalized Neurologic: motor weakness Skin: normal pigmentation, warm/dry Laboratory Tests Test 02/01/18 05:20 02/01/18 11:40 White Blood Count 4.5 K/UL (4.8-10.8) L Red Blood Count 4.85 M/UL (4.20-5.40) Hemoglobin 11.9 G/DL (12.0-16.0) L Hematocrit 37.6 % (37.0-47.0) Mean Corpuscular Volume 77 FL (80-99) L Mean Corpuscular Hemoglobin 24.6 PG (27.0-31.0) L Mean Corpuscular Hemoglobin Concent 31.8 G/DL (32.0-36.0) L Red Cell Distribution Width 12.2 % (11.6-14.8) Platelet Count 212 K/UL (150-450) Mean Platelet Volume 8.2 FL (6.5-10.1) Neutrophils (%) (Auto) 56.1 % (45.0-75.0) Lymphocytes (%) (Auto) 26.4 % (20.0-45.0) Monocytes (%) (Auto) 15.0 % (1.0-10.0) H Eosinophils (%) (Auto) 1.7 % (0.0-3.0) Basophils (%) (Auto) 0.9 % (0.0-2.0) Sodium Level 138 MMOL/L (136-145) Potassium Level 4.8 MMOL/L (3.5-5.1) Chloride Level 105 MMOL/L (98-107) Carbon Dioxide Level 28 MMOL/L (21-32) Anion Gap 5 mmol/L (5-15) Blood Urea Nitrogen 25 mg/dL (7-18) H Creatinine 0.7 MG/DL (0.55-1.30) Estimat Glomerular Filtration Rate mL/min (>60) Glucose Level 93 MG/DL (74-106) Calcium Level 8.6 MG/DL (8.5-10.1) Urine Eosinophils Pending Urine Random Creatinine Pending Urine Random Microalbumin Pending Urine Random Total Protein 64 MG/DL (< 11.9) H Urine Random Sodium 122 mmol/L (20-110) H Urine Creatinine 21.9 MG/DL (30.0-125.0) L Urine Microalbumin/Creatinine Ratio Pending Current Medications Medications (Trade) Dose Ordered Sig/Junior Route PRN Reason Start Time Stop Time Status Last Admin Dose Admin Acetaminophen (Tylenol) 650 mg Q4H PRN ORAL fever 01/30/18 18:00 02/27/18 17:59 Albuterol/ Ipratropium (Albuterol/ Ipratropium) 3 ml Q4H PRN HHN Shortness of Breath 01/30/18 18:00 02/02/18 17:59 Albuterol/ Ipratropium (Albuterol/ Ipratropium) 3 ml TIDRT HHN 01/31/18 13:00 02/05/18 12:59 02/01/18 08:19 Amlodipine Besylate (Norvasc) 10 mg DAILY GT 01/31/18 09:00 02/28/18 08:59 02/01/18 09:19 Cefepime HCl 2 gm/ Dextrose 110 ml @ 220 mls/hr Q24H IV 01/31/18 15:00 02/04/18 14:59 01/31/18 15:59 Dextrose (Dextrose 50%) 25 ml Q30M PRN IV Hypoglycemia 01/30/18 17:45 02/27/18 20:44 Dextrose (Dextrose 50%) 50 ml Q30M PRN IV Hypoglycemia 01/30/18 17:45 02/27/18 20:44 Famotidine (Pepcid I.v.) 20 mg DAILY IVP 01/31/18 09:00 03/01/18 08:59 02/01/18 09:20 Heparin Sodium (Porcine) (Heparin 5000 units/ml) 5,000 units EVERY 12 HOURS SUBQ 01/30/18 21:00 02/27/18 20:59 02/01/18 09:29 Insulin Aspart (NovoLOG) Q6HR SUBQ 01/30/18 18:00 02/27/18 20:59 Levetiracetam (Keppra) 500 mg Q12H GT 01/30/18 21:00 02/27/18 20:59 02/01/18 09:18 Losartan Potassium (Cozaar) 25 mg EVERY 12 HOURS ORAL 01/31/18 23:45 03/02/18 23:44 02/01/18 09:20 Morphine Sulfate (Morphine Sulfate) 2 mg Q4H PRN IVP Moderate Pain (Pain Scale 4-6) 01/30/18 18:00 02/04/18 17:59 Ondansetron HCl (Zofran) 4 mg Q6H PRN IVP Nausea & Vomiting 01/30/18 18:00 02/27/18 17:59 Phenazopyridine HCl (Pyridium) 100 mg DAILYPRN PRN ORAL dysuria 01/30/18 18:00 03/01/18 17:59 Phenytoin (Dilantin) 200 mg EVERY 12 HOURS GT 01/30/18 21:00 02/27/18 20:59 02/01/18 09:19 Polyethylene Glycol (Miralax) 17 gm DAILYPRN PRN ORAL Constipation 01/30/18 18:00 03/01/18 17:59 Sodium Chloride 1,000 ml @ 50 mls/hr Q20H IV 01/30/18 17:45 03/01/18 08:29 02/01/18 03:28 Temazepam (Restoril) 15 mg HSPRN PRN ORAL Insomnia 01/30/18 18:00 02/06/18 17:59 Vancomycin HCl (Vanco rx to dose) 1 ea DAILY PRN MISC Per rx protocol 01/31/18 13:00 03/02/18 12:59 Vancomycin/Sodium Chloride 250 ml @ 166.667 mls/hr Q24H IVPB 01/31/18 14:00 02/05/18 13:59 01/31/18 14:17 Leora Bansal M.D. Feb 01, 2018 12:39
--- NOTE | 2018-02-01 13:19 | Pulmonology Progress Note ---
Assessment/Plan Problems: (1) Chronic respiratory failure (2) Vomiting (3) UGI bleed (4) UTI (lower urinary tract infection) (5) Feeding by G-tube (6) HTN (hypertension) Assessment/Plan improving VS stable looks comfortable respiratory treatment trach site care check h/h prbc prn GI evaluation H2 blockers monitor BP Subjective ROS Limited/Unobtainable: No Constitutional: Reports: no symptoms HEENT: Repors: no symptoms Respiratory: Reports: no symptoms Allergies: Coded Allergies: No Known Allergies (Verified , 08/30/10) Objective Last 24 Hour Vital Signs Date Time Temp Pulse Resp B/P (MAP) Pulse Ox O2 Delivery O2 Flow Rate FiO2 02/01/18 09:20 141/80 02/01/18 09:19 68 141/80 02/01/18 09:00 T-piece 3.0 02/01/18 08:25 64 20 99 T-piece 8.0 30 02/01/18 08:17 T-piece 8.0 30 02/01/18 08:17 62 20 98 T-piece 8.0 30 02/01/18 08:16 98 T-piece 8.0 30 02/01/18 08:00 96.7 68 17 141/80 (100) 99 96.7 02/01/18 04:39 96.2 62 21 129/89 (102) 100 96.2 02/01/18 01:39 T-piece 8.0 30 02/01/18 01:39 99 T-piece 8.0 30 02/01/18 00:44 120/60 02/01/18 00:00 96.3 65 21 120/60 (80) 99 96.3 01/31/18 22:16 T-piece 3.0 01/31/18 20:27 96.9 66 21 158/75 (102) 100 96.9 01/31/18 20:03 65 18 99 T-piece 8.0 30 01/31/18 19:53 T-piece 8.0 30 01/31/18 19:53 99 T-piece 8.0 30 01/31/18 19:53 63 18 99 T-piece 8.0 30 01/31/18 16:00 96.2 64 18 144/84 (104) 100 96.2 Intake and Output 01/31/18 02/01/18 19:00 07:00 Intake Total 1380.000 ml 1090 ml Output Total 1050 ml Balance 1380.000 ml 40 ml Intake Free Water 90 ml 100 ml IV Total 870.000 ml 500 ml Tube Feeding 420 ml 490 ml Output Urine Total 1050 ml # Bowel Movements 1 General Appearance: WD/WN, no acute distress HEENT: status post trach Respiratory/Chest: chest wall non-tender, lungs clear, chest wall tender Cardiovascular: normal peripheral pulses Abdomen: normal bowel sounds, no organomegaly Extremities: no cyanosis Skin: no lesions Neurologic/Psychiatric: [employer] II-XII grossly normal Laboratory Tests 02/01/18 05:20: White Blood Count 4.5L, Red Blood Count 4.85, Hemoglobin 11.9L, Hematocrit 37.6 , Mean Corpuscular Volume 77L, Mean Corpuscular Hemoglobin 24.6L, Mean Corpuscular Hemoglobin Concent 31.8L, Red Cell Distribution Width 12.2, Platelet Count 212, Mean Platelet Volume 8.2, Neutrophils (%) (Auto) 56.1, Lymphocytes (%) (Auto) 26.4, Monocytes (%) (Auto) 15.0H, Eosinophils (%) (Auto) 1.7, Basophils (%) (Auto) 0.9, Sodium Level 138, Potassium Level 4.8, Chloride Level 105, Carbon Dioxide Level 28, Anion Gap 5, Blood Urea Nitrogen 25H, Creatinine 0.7, Estimat Glomerular Filtration Rate , Glucose Level 93, Calcium Level 8.6 02/01/18 11:40: Urine Eosinophils None seen, Urine Random Creatinine [Pending], Urine Random Microalbumin [Pending], Urine Random Total Protein 64H, Urine Random Sodium 122H , Urine Creatinine 21.9L, Urine Microalbumin/Creatinine Ratio [Pending] Current Medications Medications (Trade) Dose Ordered Sig/Junior Route PRN Reason Start Time Stop Time Status Last Admin Dose Admin Acetaminophen (Tylenol) 650 mg Q4H PRN ORAL fever 01/30/18 18:00 02/27/18 17:59 Albuterol/ Ipratropium (Albuterol/ Ipratropium) 3 ml Q4H PRN HHN Shortness of Breath 01/30/18 18:00 02/02/18 17:59 Albuterol/ Ipratropium (Albuterol/ Ipratropium) 3 ml TIDRT HHN 01/31/18 13:00 02/05/18 12:59 02/01/18 08:19 Amlodipine Besylate (Norvasc) 10 mg DAILY GT 01/31/18 09:00 02/28/18 08:59 02/01/18 09:19 Ceftriaxone Sodium 1 gm/ Dextrose 55 ml @ 110 mls/hr Q24H IVPB 02/01/18 16:00 02/08/18 15:59 Dextrose (Dextrose 50%) 25 ml Q30M PRN IV Hypoglycemia 01/30/18 17:45 02/27/18 20:44 Dextrose (Dextrose 50%) 50 ml Q30M PRN IV Hypoglycemia 01/30/18 17:45 02/27/18 20:44 Famotidine (Pepcid I.v.) 20 mg DAILY IVP 01/31/18 09:00 03/01/18 08:59 02/01/18 09:20 Heparin Sodium (Porcine) (Heparin 5000 units/ml) 5,000 units EVERY 12 HOURS SUBQ 01/30/18 21:00 02/27/18 20:59 02/01/18 09:29 Insulin Aspart (NovoLOG) Q6HR SUBQ 01/30/18 18:00 02/27/18 20:59 Levetiracetam (Keppra) 500 mg Q12H GT 01/30/18 21:00 02/27/18 20:59 02/01/18 09:18 Losartan Potassium (Cozaar) 25 mg EVERY 12 HOURS ORAL 01/31/18 23:45 03/02/18 23:44 02/01/18 09:20 Morphine Sulfate (Morphine Sulfate) 2 mg Q4H PRN IVP Moderate Pain (Pain Scale 4-6) 01/30/18 18:00 02/04/18 17:59 Ondansetron HCl (Zofran) 4 mg Q6H PRN IVP Nausea & Vomiting 01/30/18 18:00 02/27/18 17:59 Phenazopyridine HCl (Pyridium) 100 mg DAILYPRN PRN ORAL dysuria 01/30/18 18:00 03/01/18 17:59 Phenytoin (Dilantin) 200 mg EVERY 12 HOURS GT 01/30/18 21:00 02/27/18 20:59 02/01/18 09:19 Polyethylene Glycol (Miralax) 17 gm DAILYPRN PRN ORAL Constipation 01/30/18 18:00 03/01/18 17:59 Sodium Chloride 1,000 ml @ 50 mls/hr Q20H IV 01/30/18 17:45 03/01/18 08:29 02/01/18 03:28 Temazepam (Restoril) 15 mg HSPRN PRN ORAL Insomnia 01/30/18 18:00 02/06/18 17:59 Vancomycin HCl (Vanco rx to dose) 1 ea DAILY PRN MISC Per rx protocol 01/31/18 13:00 03/02/18 12:59 Vancomycin/Sodium Chloride 250 ml @ 166.667 mls/hr Q24H IVPB 01/31/18 14:00 02/05/18 13:59 01/31/18 14:17 Reyna Lilly MD Feb 01, 2018 13:19
[2018-02-01] MEDS: Vancomycin 750mg/NS 250ml IVPB SCH (14:28)
[2018-02-01] MEDS ORDERED: LORazepam 0.5mg tab ORAL PRN (14:45)
[2018-02-01] MEDS ORDERED: CEFTRIAXONE1 G2 IV (15:18)
[2018-02-01] MEDS ORDERED: FAMOTIDINE20 MG/2 ML IV (15:19)
[2018-02-01] MEDS ORDERED: ALBUTEROL2.5 MG/3 M INH (15:21)
[2018-02-01] MEDS ORDERED: LOSARTAN POTASS25 MG ORAL (15:24)
[2018-02-01] MEDS ORDERED: NAMENDA5 MG ORAL (15:25)
[2018-02-01] MEDS ORDERED: VANCOMYCIN HCL125 MG IVPB (15:30)
[2018-02-01 16:00] VITALS: BP 144/82
[2018-02-01] MEDS ORDERED: cefTRIAXone 1 GM in D5W 55 ML IVPB SCH (16:00)
[2018-02-01] MEDS ORDERED: Memantine 5 MG TAB ORAL SCH (18:00)
[2018-02-01 20:00] VITALS: BP 148/89
--- NOTE | 2018-02-02 02:45 | Consultation ---
DATE OF CONSULTATION: 02/01/2018 CONSULTING PHYSICIAN: Chris Connor M.D. REFERRING PHYSICIAN: Jean Claude Sorto D.O. HISTORY OF PRESENT ILLNESS: This is an 87-year-old female patient with abdominal pain. She continues to have confusion and disorganized thought process. She has got no logical thought process of care, but anyway this patient came into hospital with abdominal pain primarily. She came here from [facility]. She has urinary tract infection, sepsis, and she is in very confusion and disorganized thought process. Mood lability declined. Cognition has declined below her baseline. That is why her attending physician has requested daily psychiatric consultation and so she does require daily psychiatric consultation at this time because her altered mental status has been declined. Her cognition is below baseline. Her attending physician has requested daily psychiatric consultation. I saw and assessed at bedside. She is very confused and disorganized. Her cognition has declined below baseline. MEDICAL HISTORY: Respiratory failure, seizure disorder, hypertension, and dysphagia. ALLERGIES: As far as her allergy history, she has no known drug allergies. SUBSTANCE ABUSE HISTORY: No history of any drug and alcohol use. PAIN ASSESSMENT: 0/10. DEVELOPMENTAL PROBLEMS: Denies. FAMILY PSYCHIATRIC HISTORY: No known family psychiatric history. SOCIAL HISTORY: The patient is financially supported by [employer] and Medicare. Lives in [facility]. PSYCHIATRIC HISTORY: Major depression with psychotic features, rule out pseudodementia. MENTAL STATUS EXAMINATION: This is an 87-year-old female. Appearance is disheveled. Attitude, irritable and agitated. Affect guarded and restricted. Intellect poor. Mood depressed and anxious. Motor activity, psychomotor agitation. Attention span is poor. Orientation x2. Speech is low volume and slurred. Thought process, disorganized and illogical. Thought content, paranoid delusions. Insight and judgment are poor. DIAGNOSIS: Major depression with psychotic features, rule out pseudodementia. STRENGTHS: She is motivated to get better and she has a place to live. WEAKNESSES: She is impulsive and no support system. MEDICAL HISTORY: Respiratory failure, seizure disorder, hypertension, GERD, psychosocial stressors, and financial. PLAN: Plan for this patient, treat her with Namenda 5 mg twice a day to prevent any further decline in her cognition. The patient continued to be followed by Psychiatry daily throughout hospital course per request of her attending physician in order to prevent any further decline in her cognition. Chart reviewed, discussed with staff, and the patient is seen and assessed at bedside. 20 minutes of supportive psychotherapy provided. Chris Connor M.D. DR: JULI JOB#: [id number] CC:
--- NOTE | 2018-02-02 10:09 | Discharge Summary ---
Discharge Summary Discharge Summary _ DATE OF ADMISSION: 01/28/2018 DATE OF DISCHARGE: 2017 REASON FOR ADMISSION: 87 years old female with past medical history of diabetes mellitus, hypertension, coronary artery disease, chronic respiratory failure with tracheostomy status, dysphagia, G-tube, COPD, congestive heart failure, CVA, resident of nursing home facility, was sent for evaluation due to vomiting and generalized weakness. Vital signs revealed no fever, blood pressure 168/99 ,pulse oximetry was stable on 2 L oxygen via trach collar. Laboratory workup revealed leukocytosis WBC 12.8. Stable hemoglobin and hematocrit. BUN 35, creatinine 0.8. Sodium 131. Troponin negative. EKG revealed normal sinus rhythm, no acute ischemic changes. Albumin 2.9. Lipase 165 , AST 49, ALT 103, stable bilirubin. Urinalysis with evidence of UTI. Chest x-ray revealed development of mild CHF. CT of the abdomen and pelvis revealed no acute findings in the abdomen or pelvis. Gastrostomy tube was noted to be in good position. Patient admitted with diagnoses of possible sepsis, urinary tract infection, vomiting, chronic respiratory failure with tracheostomy status, seizure disorder, hypertensive urgency, GERD . CONSULTANTS: medical reception Dr. Reed pulmonary Dr. Lilly ID specialist Dr. Mullen GI specialist Dr. Pineda psychiatrist Dr. Connor [facility] COURSE: Patient admitted initially to telemetry floor, and started on IV fluids and empiric antibiotics. Supplemental oxygen provided via trach collar to keep pulse oximetry above 92%. Pulmonary toilet provided around the clock and as needed. Tracheostomy care provided. Patient was suctioned as needed. Follow-up chest x-ray revealed slight improvement of mild pulmonary interstitial edema over 4 days. ID specialist closely followed. Urine culture revealed Providencia. Blood culture revealed Staphylococcus hominis and Staphylococcus epidermidis. Per ID specialist, Staphylococcus epidermidis was likely contaminant . however high grade and patient should be treated with short course of antibiotics . Patient to be continued on vancomycin and ceftriaxone at the nursing home facility to complete the course as per ID recommendations. Patient noted to have transaminitis. Abdominal ultrasound revealed no clear gallstones or other biliary pathology. Hepatitis panel was negative. Patient was on Dilantin , and mild elevation in liver enzymes could be secondary to Dilantin. Seizure precautions were maintained, no evidence of seizure activity while in the hospital. Keppra and Dilantin continued. GI specialist closely followed. Patient was on antiemetics agent Reglan around the clock. Patient started on tube feeding at low rate and slowly increased as tolerated. Strict aspiration /reflux precautions were maintained. Patient was able to tolerate tube feeding, no further vomiting. GI prophylaxis provided. Bowel regimen instituted. Renal parameters and electrolytes were closely monitored. Electrolytes corrected as needed, and nephrotoxins were avoided. Channeler Runner closely followed. Blood pressure was managed with calcium channel myah and due to uncontrolled blood pressure , angiotensin receptor myah was added to antihypertensive regimen . Blood pressure stabilized. Previous ECHO revealed preserved ejection fraction. Blood sugar was managed with sliding scale of insulin. DVT prophylaxis provided. Supportive care provided. Patient was stable for discharge back to nursing home facility for continuation of care. FINAL DIAGNOSES: Urinary tract infection with Providencia Vomiting ( possibly secondary to urinary tract infection or possible viral gastroenteritis) -resolved Bacteremia with Staph hominis and Staph epidermidis Chronic respiratory failure Tracheostomy status Hypertensive urgency, resolved Dehydration Dysphagia , feeding by G-tube Transaminitis GERD Seizure disorder DISCHARGE MEDICATIONS: See Medication Reconciliation list. DISCHARGE INSTRUCTIONS: Patient was discharged to the nursing home facility. Follow up with medical doctor at the facility. I have been assigned to dictate discharge summary for this account. I was not involved in the patient's management. Aura Rajput NP Feb 02, 2018 10:09
== END 2018-02-01 21:00 | DRG 872 ==
LOC: EDBD 10:14 → EMR 10:50 → 2E 11:13 → EDBEDREQ 12:58 → 4E 01-30 17:51
DX: A41.9 Sepsis, unspecified organism (principal); J96.10 Chronic respiratory failure, unspecified whether with hypoxia or hypercapnia; N39.0 Urinary tract infection, site not specified; Z43.1 Encounter for attention to gastrostomy; F32.3 Major depressive disorder, single episode, severe with psychotic features; K21.9 Gastro-esophageal reflux disease without esophagitis; I11.0 Hypertensive heart disease with heart failure; I50.9 Heart failure, unspecified; E11.9 Type 2 diabetes mellitus without complications; Z43.0 Encounter for attention to tracheostomy; G40.909 Epilepsy, unspecified, not intractable, without status epilepticus; B96.89 Other specified bacterial agents as the cause of diseases classified elsewhere; I16.0 Hypertensive urgency; E86.0 Dehydration; R13.10 Dysphagia, unspecified; R74.0 Nonspecific elevation of levels of transaminase and lactic acid dehydrogenase [LDH]; I25.10 Atherosclerotic heart disease of native coronary artery without angina pectoris; Z86.73 Personal history of transient ischemic attack (TIA), and cerebral infarction without residual deficits; R11.10 Vomiting, unspecified; E88.09 Other disorders of plasma-protein metabolism, not elsewhere classified; F03.90 Unspecified dementia, unspecified severity, without behavioral disturbance, psychotic disturbance, mood disturbance, and anxiety; Z79.4 Long term (current) use of insulin; I44.0 Atrioventricular block, first degree
CPT/HCPCS: 36415; 71045; 74176; 76700; 80048; 80053; 81003; 82043; 82044; 82570; 82962; 83036; 83690; 84300; 84484; 85025; 85610; 85730; 86705; 86709; 86803; 87040; 87081; 87086; 87181; 87340; 89050; 93005; 94640; 94664; 94760; 96365; 96375; 99285; J1815; J2405; J7620